=== PATIENT | female | born 1955 | race Caucasian/White ===

== ENCOUNTER 2018-09-05 23:49 | Inpatient (IN) | payer BC ==
[~2018-09-05] VITALS: Ht 172.7 cm; Wt 73.6 kg
[~2018-09-05 23:49] MED LIST: AZIT250T12 PO; PRD20T PO
[2018-09-05] MEDS ORDERED: methylPREDNISolone 125 MG (Solu-MEDROL) VIAL IV STA (23:56)
[2018-09-06] VITALS (19 sets, daily range): BP systolic 100–128; BP diastolic 51–93
[2018-09-06] MEDS ORDERED: DEXAMETHASONE 4 MG/ML SDV (DECADRON) IH ONE
[2018-09-06 00:53] LABS: BASOPHILS % (AUTO) 0 % (0-10); EOSINOPHILS # (AUTO) 0.1 10^3/uL (0.0-0.3); EOSINOPHILS % (AUTO) 2 % (0-10); HEMATOCRIT 48 % (35-52); HEMOGLOBIN 15.8 G/DL (11.5-16.0); LYMPHOCYTES % (AUTO) 15 % (12-44); MEAN CORPUSCULAR HEMOGLOBIN 30 PG (25-34); MEAN CORPUSCULAR HGB CONC 33 G/DL (32-36); MEAN CORPUSCULAR VOLUME 92 FL (80-99); MEAN PLATELET VOLUME 11.5 FL (7.4-10.4); MONOCYTES # (AUTO) 0.6 X 10^3 (0.0-1.0); MONOCYTES % (AUTO) 8 % (0-12); NEUTROPHILS % (AUTO) 75 % (42-75); PLATELET COUNT 100 10^3/uL (130-400); RED BLOOD COUNT 5.28 10^6/uL (4.35-5.85); RED CELL DISTRIBUTION WIDTH 12.8 % (10.0-14.5); WHITE BLOOD COUNT 6.7 10^3/uL (4.3-11.0)
[2018-09-06] MEDS ORDERED: RT-ALBUTEROL/IPRATROPIUM 3 ML (DUONEB) VIAL INH ONE ×2 (01:00)
[2018-09-06] MEDS ORDERED: RT-ALBUTEROL SULF 2.5 MG/3 ML PRE-MIX VIAL ONE (01:03)
[2018-09-06] MEDS ORDERED: RT-IPRATROPIUM (ATROVENT) 0.5MG/2.5ML AMP IH ONE ×2 (01:03→01:30)
[2018-09-06 01:12] LABS: PROTHROMBIN TIME PATIENT 13.3 SEC (12.2-14.7)
[2018-09-06] MEDS ORDERED: ONDANSETRON 4 MG/2 ML (SDV) Z0FRAN IVP ONE (01:15)
[2018-09-06 01:18] LABS: ALANINE AMINOTRANSFERASE 31 U/L (0-55); ALKALINE PHOSPHATASE 42 U/L (40-136); BILIRUBIN,TOTAL 0.5 MG/DL (0.1-1.0); BUN/CREATININE RATIO 10; CARBON DIOXIDE 26 MMOL/L (21-32); CHLORIDE 104 MMOL/L (98-107); CREATINE KINASE 44 U/L (29-168); CREATININE SERUM 0.82 MG/DL (0.60-1.30); GFR ESTIMATED > 60; GLUCOSE 93 MG/DL (70-105); MAGNESIUM 2.7 MG/DL (1.8-2.4); POTASSIUM 4.9 MMOL/L (3.6-5.0); SODIUM 140 MMOL/L (135-145); TOTAL PROTEIN 7.5 GM/DL (6.4-8.2)
[2018-09-06 01:24] LABS: CREATINE KINASE MB 1.7 NG/ML (<6.6)
[2018-09-06] MEDS ORDERED: RT-ALBUTEROL SULF 2.5 MG/3 ML PRE-MIX VIAL INH SCH ×2 (01:30)
[2018-09-06] MEDS ORDERED: cefTRIAXone FOR IV USE 1,000 MG in NS (IVPB) 50 ML IV ONE (01:45)
--- NOTE | 2018-09-06 01:45 | ED Respiratory ---
General Chief Complaint: Respiratory Problems Stated Complaint: SOB,DIARRHEA Nursing Triage Note: Pt arrived via ambulance for SOB and COPD. Pt has inhaler but will not use it properly. Onset was yesterday afternooon along with chills, fever and diarrhea. Allergies and Home Medications Allergies Coded Allergies: No Allergy Information Available (Unverified , 04/05/14) Home Medications Azithromycin 250 Mg Tablet, 250 MG PO UD TAKE 2 TABLETS ON DAY ONE THEN TAKE 1 TABLET DAILY FOR FOUR MORE DAYS Prescribed by: ELGIN NIELESN on 09/04/15 1509 Prednisone 20 Mg Tab, 40 MG PO DAILY Prescribed by: ELGIN NIELSEN on 09/04/15 1509 Past Ssprmuf-Jjdtmm-Dwbmcs Hx Patient Social History Recent Foreign Travel: No Contact w/Someone Who Travel: No Recent Infectious Disease Expo: No Seasonal Allergies Seasonal Allergies: No Past Medical History Appendectomy, Gallbladder, Hysterectomy, Lumpectomy, Orthopedic, Tubal Ligation Chronic Bronchitis High Cholesterol, Hypertension Liver Disease/Jaundice Family Medical History No Pertinent Family Hx Physical Exam Vital Signs - First Documented 09/05/18 09/06/18 23:50 00:42 Temp 99.5 Pulse 74 Resp 36 B/P (MAP) 140/78 (98) Pulse Ox 97 O2 Delivery Nasal Cannula O2 Flow Rate 5.00 Capillary Refill : Less Than 3 Seconds Height: 5'7.00" Weight: 154lbs. oz. 69.364967yi; 18.09 BMI Method:Stated Focused Exam Lactate Level 09/06/18 00:40: Lactic Acid Level 0.65 Lactic Acid Level Laboratory Tests Test 09/06/18 00:40 Lactic Acid Level 0.65 MMOL/L (0.50-2.00) Progress/Results/Core Measures Suspected Sepsis Recent Fever Within 48 Hours: Yes Infection Criteria Present: Suspected New Infection New/Unexplained Altered Menta: No Sepsis Screen: Possible Sepsis Risk SIRS Temperature:99.5 Pulse: 74 Respiratory Rate: 36 Laboratory Tests 09/06/18 00:40: White Blood Count 6.7 Blood Pressure 140 /78 Mean: 98 09/06/18 00:40: Lactic Acid Level 0.65 Laboratory Tests 09/06/18 00:40: Creatinine 0.82, INR Comment 1.0, Platelet Count 100L, Total Bilirubin 0.5 Results/Orders Lab Results Laboratory Tests Test 09/06/18 00:40 Range/Units White Blood Count 6.7 4.3-11.0 10^3/uL Red Blood Count 5.28 4.35-5.85 10^6/uL Hemoglobin 15.8 11.5-16.0 G/DL Hematocrit 48 35-52 % Mean Corpuscular Volume 92 80-99 FL Mean Corpuscular Hemoglobin 30 25-34 PG Mean Corpuscular Hemoglobin Concent 33 32-36 G/DL Red Cell Distribution Width 12.8 10.0-14.5 % Platelet Count 100 L 130-400 10^3/uL Mean Platelet Volume 11.5 H 7.4-10.4 FL Neutrophils (%) (Auto) 75 42-75 % Lymphocytes (%) (Auto) 15 12-44 % Monocytes (%) (Auto) 8 0-12 % Eosinophils (%) (Auto) 2 0-10 % Basophils (%) (Auto) 0 0-10 % Neutrophils # (Auto) 5.0 1.8-7.8 X 10^3 Lymphocytes # (Auto) 1.0 1.0-4.0 X 10^3 Monocytes # (Auto) 0.6 0.0-1.0 X 10^3 Eosinophils # (Auto) 0.1 0.0-0.3 10^3/uL Basophils # (Auto) 0.0 0.0-0.1 10^3/uL Prothrombin Time 13.3 12.2-14.7 SEC INR Comment 1.0 0.8-1.4 Activated Partial Thromboplast Time 35 24-35 SEC Sodium Level 140 135-145 MMOL/L Potassium Level 4.9 3.6-5.0 MMOL/L Chloride Level 104 98-107 MMOL/L Carbon Dioxide Level 26 21-32 MMOL/L Anion Gap 10 5-14 MMOL/L Blood Urea Nitrogen 8 7-18 MG/DL Creatinine 0.82 0.60-1.30 MG/DL Estimat Glomerular Filtration Rate > 60 BUN/Creatinine Ratio 10 Glucose Level 93 70-105 MG/DL Lactic Acid Level 0.65 0.50-2.00 MMOL/L Calcium Level 9.0 8.5-10.1 MG/DL Corrected Calcium 9.0 8.5-10.1 MG/DL Magnesium Level 2.7 H 1.8-2.4 MG/DL Total Bilirubin 0.5 0.1-1.0 MG/DL Aspartate Amino Transf (AST/SGOT) 31 5-34 U/L Alanine Aminotransferase (ALT/SGPT) 31 0-55 U/L Alkaline Phosphatase 42 40-136 U/L Total Creatine Kinase 44 29-168 U/L Creatine Kinase MB 1.7 <6.6 NG/ML Troponin I < 0.30 <0.30 NG/ML B-Type Natriuretic Peptide 36.4 <100.0 PG/ML Total Protein 7.5 6.4-8.2 GM/DL Albumin 4.0 3.2-4.5 GM/DL Micro Results Microbiology 09/06/18 Influenza Types A,B Antigen (ROYAL) - Final, Complete My Orders Orders - CA OSMAN DO BNP (09/05/18 23:56) Cbc With Automated Diff (09/05/18 23:56) Comprehensive Metabolic Panel (09/05/18 23:56) Creatine Kinase (09/05/18 23:56) Creatine Kinase Mb (09/05/18 23:56) Lactic Acid Analyzer (09/05/18 23:56) Magnesium (09/05/18 23:56) Protime With Inr (09/05/18 23:56) Partial Thromboplastin Time (09/05/18 23:56) Troponin I (09/05/18 23:56) Blood Culture (09/05/18 23:56) Influenza A And B Antigens (09/05/18 23:56) Sputum Culture (09/05/18 23:56) Albuterol/Ipra Inhalation Soln (Duoneb I (09/06/18 00:00) Dexamethasone Injection (Decadron Inject (09/06/18 00:00) Rt Request For Service (09/05/18 23:56) Ekg Tracing (09/05/18 23:56) O2 (09/05/18 23:56) Monitor-Rhythm Ecg Trace Only (09/05/18 23:56) Methylprednisolone Sod Succ (Solu-Medrol (09/05/18 23:56) Svn Small Volume Nebulizer (09/05/18 23:56) Chest 1 View, Ap/Pa Only (09/06/18 00:01) Ekg Tracing (09/06/18 00:38) Albuterol/Ipra Inhalation Soln (Duoneb I (09/06/18 01:00) Svn Small Volume Nebulizer (09/06/18 00:54) Ipratropium 0.02% Neb Solution (Atrovent (09/06/18 01:03) Albuterol Pre-Mix Nebs (Rt) (Proventil (09/06/18 01:03) Ondansetron Injection (Zofran Injectio (09/06/18 01:15) Albuterol Pre-Mix Nebs (Rt) (Proventil (09/06/18 01:30) Ipratropium 0.02% Neb Solution (Atrovent (09/06/18 01:30) Albuterol Pre-Mix Nebs (Rt) (Proventil (09/06/18 01:30) Ceftriaxone For Iv Use (Rocephin For I (09/06/18 01:45) Medications Given in ED Current Medications Medications Dose Ordered Sig/Jean Route Start Time Stop Time Status Last Admin Dose Admin Albuterol/ Ipratropium 3 ml ONCE ONCE INH 09/06/18 00:00 09/06/18 00:01 DC 09/06/18 00:42 3 ML Albuterol/ Ipratropium 3 ml ONCE ONCE INH 09/06/18 01:00 09/06/18 01:01 DC 09/06/18 00:59 3 ML Dexamethasone Sodium Phosphate 20 mg ONCE ONCE IH 09/06/18 00:00 09/06/18 00:01 DC 09/06/18 00:42 20 MG Ondansetron HCl 8 mg ONCE ONCE IVP 09/06/18 01:15 09/06/18 01:16 DC 09/06/18 01:12 8 MG Vital Signs/I&O 09/05/18 09/06/18 09/06/18 09/06/18 23:50 00:42 00:59 01:14 Temp 99.5 Pulse 74 Resp 36 B/P (MAP) 140/78 (98) Pulse Ox 97 100 100 97 O2 Delivery Nasal Cannula Nasal Cannula Nasal Cannula Nasal Cannula O2 Flow Rate 5.00 3.00 5.00 Capillary Refill : Less Than 3 Seconds Blood Pressure Mean: 98 Progress Note : Progress Note PT STILL WITH RESIDUAL RALES/RHONCHI/WHEEZING, BUT PT REFUSES TO COMPLETE 3RD NEB TREATMENT O2 SATS REMAIN 100% ON O2 AT 2L/NC NO DETERIORATION IN PT'S CONDITION DURING ER STAY Diagnostic Imaging Comments CXR--BIBASILAR ATELECTASIS ?--PENDING RADIOLOGIST REVIEW Departure Impression Primary Impression: Acute bronchitis Additional Impression: COPD exacerbation Disposition: 01 HOME, SELF-CARE Condition: Stable Departure-Patient Inst. Referrals: RAMYA MCKEON MD Patient Instructions: Acute Bronchitis, Adult (DC), COPD Including Emphysema ( DC) Add. Discharge Instructions: LOTS OF CLEAR LIQUIDS TYLENOL AND MOTRIN NEEDED FOR PAIN OR FEVER CONTINUE YOUR REGULAR MEDICATIONS PRESCRIBED USE YOUR INHALERS EXACTLY PRESCRIBED FOLLOW UP WITH YOUR DR ON TUESDAY FOR FURTHER All discharge instructions reviewed with patient and/or family. Voiced understanding. Scripts Azithromycin (Zithromax) 500 Mg Tablet 500 MG PO DAILY, #5 TAB FOR INFECTION Prov: CA OSMAN DO 09/06/18 Cefdinir (Cefdinir) 300 Mg Capsule 300 MG PO BID for FOR INFECTION, #20 CAP Prov: CA OSMAN DO 09/06/18 Benzonatate (TESSALON PERLES) 100 Mg Capsule 1-2 TAB PO TID for Cough, #30 CAP Prov: CA OSMAN DO 09/06/18 Methylprednisolone (Medrol) 4 Mg Tab.ds.pk 4 MG PO UD, #1 PKG Prov: CA OSMAN DO 09/06/18 Albuterol Sulfate (PROAIR HFA) 1 Puff Puff 2 PUFF IH Q4H for BREATHING, #1 GM Prov: CA OSMAN DO 09/06/18 CA OSMAN DO Sep 06, 2018 01:45
[2018-09-06] MEDS ORDERED: CEFD300C3 PO ×2 (01:53→02:08)
[2018-09-06] MEDS ORDERED: RT-ALBUINH IH ×2 (01:53→02:08)
[2018-09-06] MEDS ORDERED: BENZ100C18 PO ×2 (01:53→02:08)
[2018-09-06] MEDS ORDERED: METH4TAB PO ×2 (01:53→02:08)
[2018-09-06] MEDS ORDERED: AZIT500T PO ×2 (01:53→02:08)
[2018-09-06] MEDS ORDERED: RX-ALBUTEROL INHALER (PROAIR) 8 GM IH STA (01:55)
[2018-09-06] MEDS ORDERED: AZITHROMYCIN 250 MG TAB (ZITHROMAX) PO ONE (02:00)
--- NOTE | 2018-09-06 02:10 | NUR ---
Pt was turned to room air and oxygen saturation was at 96%. Pt walked down to bathroom and when she got back to room, patient's oxygen saturation was 82% on room air. Nasal canula was applied at 3 Liters and oxygen saturation was 88-89%. Increased to 4 liters and oxygen saturation was 92-96%.
[2018-09-06] MEDS ORDERED: RT-ALBUTEROL/IPRATROPIUM 3 ML (DUONEB) VIAL INH PRN (04:45)
[2018-09-06] MEDS ORDERED: AZITHROMYCIN 500 MG/NS 250 ML IVPB IV ONE ×2 (04:45)
[2018-09-06] MEDS ORDERED: methylPREDNISolone 125 MG (Solu-MEDROL) VIAL IV SCH (06:00)
[2018-09-06] MEDS: RT-ALBUTEROL/IPRATROPIUM 3 ML (DUONEB) VIAL INH SCH ×5 (06:35→23:52)
--- NOTE | 2018-09-06 07:56 | Diagnostic Imaging Report ---
INDICATION: Shortness of air, cough and congestion. TECHNIQUE: Single view chest 12:11 a.m. CORRELATION STUDY: 09/04/2015. FINDINGS: The heart size, mediastinal configuration and pulmonary vascularity are within normal limits. The lungs are clear with no consolidating infiltrate. There is no significant effusion or pneumothorax. Some increased density over the lung bases likely soft tissue attenuation. IMPRESSION: 1. No radiographic findings to suggest acute abnormality of the chest. Dictated by: Dictated on workstation # [id number]
[2018-09-06] MEDS ORDERED: RT-ADVAIR HFA 115/21 MCG PER PUFF IH SCH (08:00)
[2018-09-06] MEDS ORDERED: BUDE10.2 INH (09:25)
[2018-09-06] MEDS ORDERED: ALPR0.5T7 PO (09:25)
[2018-09-06] MEDS ORDERED: PROP40TA5 PO (09:25)
[2018-09-06] MEDS ORDERED: ESTR2TAB PO (09:25)
[2018-09-06] MEDS ORDERED: CHOL10003 PO (09:25)
[2018-09-06] MEDS ORDERED: OXYC-529 PO (09:25)
[2018-09-06] MEDS ORDERED: LISI-552 PO (09:25)
--- NOTE | 2018-09-06 09:27 | NUR ---
SPOKE WITH THE PATIENT ABOUT HER MEDICATIONS. WE WENT OVER THE EXT MED HX AND SHE VERIFIED HOW SHE TAKES THEM. SHE ALSO TAKES VITAMIN D OTC DAILY. SHE WAS PRESCRIBED 5 PRESCRIPTIONS IN ED PRIOR TO THEM DECIDING TO ADMIT HER. I HAVE REMOVED THEM FROM THE MED REC AT THIS TIME SINCE SHE WAS ADMITTED AND HAS NOT PICKED THEM UP OR STARTED THEM.
--- NOTE | 2018-09-06 10:27 | History & Physical-Hospitalist ---
History of Present Illness HPI/Chief Complaint CC: Dyspnea with hypoxia HPI: This is a 62-year-old white female clinic patient of Dr. Taylor with a history of chronic pain with narcotic dependence and anxiety with early COPD who presented to the ER with shortness of breath and wheezing found to have significant hypoxia of 80 percent requiring IV steroids nebulizer treatments and oxygen supplementation. She reports that she felt badly for the past 2 days and has not required home oxygen in the past. She does not have a history of pulmonary function testing. She does appear to be a good candidate for pulmonary rehabilitation since she hasn't smoked for 3 years but apparently she vapes. Overall patient has stabilized during the hospital course with transfer to fourth floor. Source: patient, RN/MD Exam Limitations: no limitations Date Seen 09/06/18 Time Seen by a Provider: 09:30 Attending Physician Radha Taylor Floyd R MD Referring Physician Date of Admission Sep 06, 2018 at 02:48 Home Medications & Allergies Home Medications Reviewed patient Home Medication Reconciliation performed by pharmacy medication reconciliations equine pharmacology technician and/or nursing. Patients Allergies have been reviewed. Allergies Allergies Coded Allergies No Allergy Information Available (Unverified04/05/14) Past Hbuhuho-Jtbpkw-Sbinow Hx Past Med/Social Hx: Reviewed Nursing Past Med/Soc Hx, Reviewed and Corrections made Patient Social History Marrital Status: single Employed/Student: employed (Caregiver) Alcohol Use: Denies Use Recreational Drug Use: No Smoking Status: Former Smoker Former Smoker, Quit: Aug 07, 2018 Type Used: Cigarettes Physical Abuse Screen: No Sexual Abuse: No Recent Foreign Travel: No Contact w/other who traveled: No Recent Hopitalizations: No Recent Infectious Disease Expo: No Immunizations Up To Date Date of Influenza Vaccine: Jul 07, 2018 Seasonal Allergies Seasonal Allergies: No Past Medical History Surgeries: Appendectomy, Gallbladder, Hysterectomy, Lumpectomy, Orthopedic, Tubal Ligation Respiratory: COPD Currently Using CPAP: No Currently Using BIPAP: No Cardiac: High Cholesterol, Hypertension : No Gastrointestinal: Liver Disease/Jaundice Musculoskeletal: Arthritis Cancer: Breast Cancer: Tumor on breast - has been removed Psychosocial: Anxiety History of Blood Disorders: No Adverse Reaction to Blood [place]: No Family History Completed stroke 19 FATHER, Onset:60 years & older FH: lung cancer 19 MOTHER, Onset:60 years & older FH: rheumatoid arthritis G8 SISTER, Onset:25s - 30 Myocardial infarction G8 BROTHER, Onset:50's - 60 Sjogren's disease G8 SISTER, Onset:30's - 40 No Pertinent Family Hx Review of Systems Constitutional: see HPI, weakness EENTM: no symptoms reported Respiratory: cough, dyspnea on exertion, short of breath, wheezing Cardiovascular: no symptoms reported Gastrointestinal: no symptoms reported Genitourinary: no symptoms reported Musculoskeletal: no symptoms reported Skin: no symptoms reported Psychiatric/Neurological: No Symptoms Reported All Other Systems Reviewed Negative Unless Noted: Yes Physical Exam Physical Exam Vital Signs Vital Signs - First Documented 09/05/18 09/06/18 09/06/18 23:50 00:42 04:24 Temp 99.5 Pulse 74 Resp 36 B/P (MAP) 140/78 (98) Pulse Ox 97 O2 Delivery Nasal Cannula O2 Flow Rate 5.00 FiO2 36 Capillary Refill : Less Than 3 Seconds Height, Weight, BMI Height: 5'8.00" Weight: 156lbs. 6.0oz. 70.680088uh; 23.3 BMI Method:Stated General Appearance: No Apparent Distress, WD/WN Eyes: Bilateral Eye Normal Inspection, Bilateral Eye PERRL HEENT: PERRL/EOMI, Normal ENT Inspection, Pharynx Normal Neck: Full Range of Motion, Normal Inspection, Non Tender, Supple, Carotid Bruit Respiratory: Chest Non Tender, No Accessory Muscle Use, No Respiratory Distress , Crackles, Decreased Breath Sounds, Wheezing Cardiovascular: Regular Rate, Rhythm, No Edema, No Gallop, No JVD, No Murmur, Normal Peripheral Pulses Gastrointestinal: Normal Bowel Sounds, No Organomegaly, No Pulsatile Mass, Non Tender, Soft Back: Normal Inspection, No CVA Tenderness, No Vertebral Tenderness Extremity: Normal Capillary Refill, Normal Inspection, Normal Range of Motion, Non Tender, No Calf Tenderness, No Pedal Edema Neurologic/Psychiatric: Alert, Oriented x3, No Motor/Sensory Deficits, Normal Mood/Affect Skin: Normal Color, Warm/Dry Lymphatic: No Adenopathy Results Results/Procedures Labs Laboratory Tests 09/06/18 00:40 Patient resulted labs reviewed. Assessment/Plan Admission Diagnosis Assessment: New onset exacerbation of COPD Former smoker quit 3 years ago Bacterial bronchitis placed on empiric antibiotics Chronic pain Anxiety Plan: IV steroids Nebulizer treatments Home O2 evaluation Ambulate Transfer to fourth floor Home meds Admission Status: Inpatient Order (span 2 midnights) Reason for Inpatient Admission: Exacerbation of COPD in need of IV steroids nebulizers and oxygen Diagnosis/Problems Diagnosis/Problems (1) COPD exacerbation Status: Acute (2) Acute bronchitis Status: Acute Qualifiers: Bronchitis organism: unspecified organism Qualified Codes: J20.9 - Acute bronchitis, unspecified (3) Hypoxia Status: Acute (4) Chronic pain Status: Chronic Qualifiers: Chronic pain type: chronic pain syndrome Qualified Codes: G89.4 - Chronic pain syndrome (5) Anxiety Status: Chronic (6) Thrombocytopenia Status: Acute Clinical Quality Measures DVT/VTE Risk/Contraindication: Risk Factor Score Per Nursin RFS Level Per Nursing on Admit: 4+=Very High RADHA TAYLOR DO Sep 06, 2018 10:27
[2018-09-06] MEDS: PROPRANOLOL 20 MG (INDERAL) TABLET PO SCH ×2 (11:11→20:31)
[2018-09-06] MEDS: methylPREDNISolone 40 MG/ML (Solu-MEDROL) VIAL IV SCH ×3 (12:56→23:38)
[2018-09-06] MEDS: ALPRAZolam 0.5 MG (XANAX) TAB PO SCH ×2 (13:58→19:49)
--- NOTE | 2018-09-06 14:45 | NUR ---
Patient transferred to 421 per accompanied by ICU staff. Patient and family notified and understand transfer. Personal belongings with patient. Report given to THIS RN FROM [employer].
[2018-09-06] MEDS: cefTRIAXone 1 GM/NS 50 ML IVPB IV SCH ×2 (20:31)
[2018-09-06] MEDS: RT-ADVAIR HFA 115/21 MCG PER PUFF IH SCH (23:31)
[2018-09-07] VITALS (16 sets, daily range): BP systolic 100–155; BP diastolic 51–91
[2018-09-07] MEDS: RT-ALBUTEROL/IPRATROPIUM 3 ML (DUONEB) VIAL INH SCH ×6 (02:48→22:04)
[2018-09-07 04:36] LABS: BASOPHILS % (AUTO) 0 % (0-10); EOSINOPHILS % (AUTO) 0 % (0-10); HEMATOCRIT 45 % (35-52); HEMOGLOBIN 14.9 G/DL (11.5-16.0); LYMPHOCYTES # (AUTO) 0.7 X 10^3 (1.0-4.0); LYMPHOCYTES % (AUTO) 4 % (12-44); MEAN CORPUSCULAR HEMOGLOBIN 30 PG (25-34); MEAN CORPUSCULAR HGB CONC 33 G/DL (32-36); MEAN CORPUSCULAR VOLUME 90 FL (80-99); MEAN PLATELET VOLUME 11.5 FL (7.4-10.4); MONOCYTES # (AUTO) 0.3 X 10^3 (0.0-1.0); MONOCYTES % (AUTO) 2 % (0-12); NEUTROPHILS # (AUTO) 17.6 X 10^3 (1.8-7.8); NEUTROPHILS % (AUTO) 95 % (42-75); PLATELET COUNT 119 10^3/uL (130-400); RED BLOOD COUNT 4.98 10^6/uL (4.35-5.85); RED CELL DISTRIBUTION WIDTH 12.8 % (10.0-14.5); WHITE BLOOD COUNT 18.6 10^3/uL (4.3-11.0)
[2018-09-07 05:03] LABS: BUN/CREATININE RATIO 14; CALCIUM 9.3 MG/DL (8.5-10.1); CARBON DIOXIDE 23 MMOL/L (21-32); CHLORIDE 103 MMOL/L (98-107); CREATININE SERUM 0.79 MG/DL (0.60-1.30); GFR ESTIMATED > 60; GLUCOSE 129 MG/DL (70-105); POTASSIUM 4.4 MMOL/L (3.6-5.0); SODIUM 136 MMOL/L (135-145)
[2018-09-07 05:05] LABS: BAND NEUTROPHILS 9 %; BASOPHILS % (MANUAL) 0 %; EOSINOPHILS % (MANUAL) 0 %; LYMPHOCYTES % (MANUAL) 4 %; MONOCYTES % (MANUAL) 0 %; NEUTROPHILS % (MANUAL) 87 %
[2018-09-07 05:06] LABS: RBC MORPH NORMAL
[2018-09-07] MEDS: methylPREDNISolone 40 MG/ML (Solu-MEDROL) VIAL IV SCH ×3 (06:10→17:07)
[2018-09-07] MEDS: ALPRAZolam 0.5 MG (XANAX) TAB PO SCH ×3 (06:11→22:07)
[2018-09-07] MEDS: VITAMIN D3 1,000 UNITS (CHOLECALCIFEROL) TABLET PO SCH (06:11)
[2018-09-07] MEDS: RT-ADVAIR HFA 115/21 MCG PER PUFF IH SCH ×2 (07:34→19:10)
--- NOTE | 2018-09-07 08:12 | NUR ---
HOME OXYGEN STUDY PT WALKED FROM BED TO BATHROOM ON 5 LPM AND SPO2 DECREASED TO 84%, TOOK SEVERAL MINUTES FOR SPO2 TO INCREASED TO 92% ONCE PT RETURNED TO BED. PT NEEDS OXYGEN AT 5 LPM AT ALL TIMES CURRENTLY
[2018-09-07] MEDS: PROPRANOLOL 20 MG (INDERAL) TABLET PO SCH ×2 (08:34→20:26)
[2018-09-07] MEDS: AZITHROMYCIN 250 MG TAB (ZITHROMAX) PO SCH (08:34)
[2018-09-07] MEDS: ESTRADIOL 1 MG TAB (ESTRACE) PO SCH (08:34)
[2018-09-07] MEDS: lisINopril 20 MG (PRINIVIL) TABLET PO SCH (08:34)
--- NOTE | 2018-09-07 09:01 | Progress Note-Hospitalist ---
Subjective HPI/CC On Admission Date Seen by Provider: Sep 07, 2018 Time Seen by Provider: 09:00 CC: Dyspnea with hypoxia HPI: This is a 62-year-old white female clinic patient of Dr. Taylor with a history of chronic pain with narcotic dependence and anxiety with early COPD who presented to the ER with shortness of breath and wheezing found to have significant hypoxia of 80 percent requiring IV steroids nebulizer treatments and oxygen supplementation. She reports that she felt badly for the past 2 days and has not required home oxygen in the past. She does not have a history of pulmonary function testing. She does appear to be a good candidate for pulmonary rehabilitation since she hasn't smoked for 3 years but apparently she vapes. Overall patient has stabilized during the hospital course with transfer to fourth floor. Subjective/Events-last exam Patient is worse Worsening wheezing that she blames on no nebulizer treatments given last night ABG checked and noted hypoxia and mild hypercapnia Dr. Waterman consultation ordered CT chest ordered to rule out PE Lovenox now given with SCDs that of been in place since admission Overall worsened status will require higher level fifth for ICU admission Review of Systems Pulmonary: Dyspnea, Cough Focused Exam Lactate Level 09/06/18 00:40: Lactic Acid Level 0.65 Objective Exam Vital Signs Vital Signs Date Time Temp Pulse Resp B/P (MAP) Pulse Ox O2 Delivery O2 Flow Rate FiO2 09/07/18 10:07 93 Nasal Cannula 5.00 09/07/18 08:00 98.5 77 18 145/65 (91) 09/06/18 04:24 36 Capillary Refill : Less Than 3 Seconds General Appearance: WD/WN, Chronically ill, Moderate Distress, Thin Respiratory: Accessory Muscle Use, Crackles, Rales, Respiratory Distress, Wheezing Cardiovascular: Regular Rate, Rhythm, No Edema, No Gallop, No JVD, No Murmur, Normal Peripheral Pulses Neurologic/Psychiatric: Alert, Oriented x3, No Motor/Sensory Deficits, Normal Mood/Affect Results/Procedures Lab Laboratory Tests 09/07/18 04:25 Patient resulted labs reviewed. Assessment/Plan Assessment and Plan Assess & Plan/Chief Complaint Assessment: New onset exacerbation of COPD with new worsening with hypoxia and hypercapnia on ABG requiring transfer to ICU and Dr. Waterman pulmonology consultation along with CT angiogram to rule out pulmonary embolism Former smoker quit 3 years ago Bacterial bronchitis placed on empiric antibiotics Chronic pain Anxiety Plan: Transfer to ICU Oxygen May need BiPAP IV steroids Monitor labs CT angiogram Lovenox SCDs Monitor closely Diagnosis/Problems Diagnosis/Problems (1) Respiratory insufficiency Status: Acute (2) COPD exacerbation Status: Acute (3) Acute bronchitis Status: Acute Qualifiers: Bronchitis organism: unspecified organism Qualified Codes: J20.9 - Acute bronchitis, unspecified (4) Hypoxia Status: Acute (5) Chronic pain Status: Chronic Qualifiers: Chronic pain type: chronic pain syndrome Qualified Codes: G89.4 - Chronic pain syndrome (6) Anxiety Status: Chronic (7) Thrombocytopenia Status: Acute Clinical Quality Measures DVT/VTE Risk/Contraindication: Risk Factor Score Per Nursin RFS Level Per Nursing on Admit: 4+=Very High OSEML PATHAK DO Sep 07, 2018 09:01
--- NOTE | 2018-09-07 09:53 | Pulmonary Consultation ---
History of Present Illness History of Present Illness Date of Consultation 09/07/18 09:48 Date of Admission Allergies and Home Medications Allergies Coded Allergies: No Allergy Information Available (Unverified , 04/05/14) Home Medications Alprazolam 0.5 Mg Tablet, 0.5 MG PO TID, (Reported) Budesonide/Formoterol Fumarate 10.2 Gm Hfa.aer.ad, 2 PUFF INH BID, (Reported) Cholecalciferol (Vitamin D3) 1,000 Unit Tablet, 1,000 UNIT PO DAILY, (Reported) Estradiol 2 Mg Tablet, 2 MG PO DAILY, (Reported) Lisinopril 20 Mg Tablet, 20 MG PO DAILY, (Reported) Oxycodone HCl 5 Mg Tablet, 5 MG PO BID, (Reported) Propranolol HCl 40 Mg Tablet, 40 MG PO BID, (Reported) Past Yzsmljg-Pltgwp-Gihlcl Hx Past Med/Social Hx: Reviewed Nursing Past Med/Soc Hx, Reviewed and Corrections made Patient Social History Alcohol Use: Denies Use Recreational Drug Use: No Smoking Status: Former Smoker Type Used: Cigarettes Former Smoker, Quit: Aug 07, 2018 Recent Foreign Travel: No Contact w/Someone Who Travel: No Recent Infectious Disease Expo: No Recent Hopitalizations: No Physical Abuse: No Sexual Abuse: No Mistreated: No Fear: No Immunizations Up To Date Date of Influenza Vaccine: Jul 07, 2018 Seasonal Allergies Seasonal Allergies: No Past Medical History Surgeries: Yes Appendectomy, Gallbladder, Hysterectomy, Lumpectomy, Orthopedic, Tubal Ligation Respiratory: Yes Chronic Bronchitis, COPD Currently Using CPAP: No Currently Using BIPAP: No Cardiac: Yes High Cholesterol, Hypertension Neurological: No : No Genitourinary: No Gastrointestinal: Yes (HEP C - 2006) Liver Disease/Jaundice Musculoskeletal: No Arthritis Endocrine: No HEENT: No Cancer: No Breast Tumor on breast - has been removed Psychosocial: No Anxiety Integumentary: No Blood Disorders: No Adverse Reaction/Blood Tranf: No Family Medical History Completed stroke 19 FATHER, Onset:60 years & older FH: lung cancer 19 MOTHER, Onset:60 years & older FH: rheumatoid arthritis G8 SISTER, Onset:25's - 30 Myocardial infarction G8 BROTHER, Onset:50's - 60 Sjogren's disease G8 SISTER, Onset:30's - 40 No Pertinent Family Hx Sepsis Event Evaluation Height, Weight, BMI Height: 5'8.00" Weight: 154lbs. 4.0oz. 69.826561ui; 23.3 BMI Method:Stated Exam Exam Vital Signs Date Time Temp Pulse Resp B/P (MAP) Pulse Ox O2 Delivery O2 Flow Rate FiO2 09/07/18 08:38 90 Nasal Cannula 5.00 09/07/18 08:09 92 5.00 09/07/18 08:00 98.5 77 18 145/65 (91) 92 Nasal Cannula 5.00 09/07/18 07:40 87 Nasal Cannula 5.00 09/07/18 07:34 87 Nasal Cannula 5.00 09/07/18 04:01 98.1 66 18 111/56 (74) 93 Nasal Cannula 4.00 09/07/18 02:48 93 Nasal Cannula 4.00 09/07/18 00:04 98.2 64 18 117/56 (76) 94 Nasal Cannula 4.00 09/06/18 23:31 94 Nasal Cannula 4.00 09/06/18 20:19 97.4 80 18 113/54 (73) 91 Nasal Cannula 4.00 09/06/18 20:00 91 Nasal Cannula 4.00 09/06/18 16:15 98.6 78 22 100/54 (69) 92 OxyMask 4.00 09/06/18 16:13 90 OxyMask 4.00 09/06/18 16:04 94 Nasal Cannula 3.00 09/06/18 14:45 94 Nasal Cannula 3.00 09/06/18 14:45 98.4 79 18 119/74 (89) 92 Nasal Cannula 4.00 09/06/18 14:27 92 Nasal Cannula 4.00 09/06/18 14:00 75 105/61 (76) 89 Nasal Cannula 4.00 09/06/18 13:00 69 104/56 (72) 89 Nasal Cannula 3.00 09/06/18 13:00 67 09/06/18 12:00 76 110/59 (76) 92 Nasal Cannula 3.00 09/06/18 12:00 94 Nasal Cannula 3.00 09/06/18 11:00 79 114/84 (94) 91 Nasal Cannula 3.00 09/06/18 10:26 94 Nasal Cannula 3.00 09/06/18 10:00 68 21 114/66 (82) 94 Nasal Cannula 3.00 I & O 09/07/18 07:00 Intake Total 1740 ml Output Total 300 ml Balance 1440 ml Height & Weight Height: 5'8.00" Weight: 154lbs. 4.0oz. 69.553940xw; 23.3 BMI Method:Stated General Appearance: No Apparent Distress, WD/WN HEENT: PERRL/EOMI, Normal ENT Inspection, Pharynx Normal Neck: Full Range of Motion, Normal Inspection, Non Tender, Supple, Carotid Bruit Respiratory: Chest Non Tender, No Accessory Muscle Use, No Respiratory Distress , Crackles, Decreased Breath Sounds, Wheezing Cardiovascular: Regular Rate, Rhythm, No Edema, No Gallop, No JVD, No Murmur, Normal Peripheral Pulses Capillary Refill: Less Than 3 Seconds Extremity: Normal Capillary Refill, Normal Inspection, Normal Range of Motion, Non Tender, No Calf Tenderness, No Pedal Edema Neurologic/Psychiatric: Alert, Oriented x3, No Motor/Sensory Deficits, Normal Mood/Affect Skin: Normal Color, Warm/Dry Lymphatic: No Adenopathy Results Lab Laboratory Tests 09/06/18 00:40 09/07/18 04:25 Assessment/Plan Assessment/Plan Acute on chronic respiratory failure COPDAE with hypoxia -SVNS, Steroids -Oxygen -check ABG -Check CT of chest -Change oxygen to vapotherm -Noninvasive ventilation QHS and PRN -Transfer to ICU Anxiety I discussed Dr. Taylor and she states pt has been getting worse respiratory damon. I am going to transfer pt to ICU step down for closer monitoring. KATHERYN LIRA DO Sep 07, 2018 09:53
[2018-09-07] MEDS: ENOXAPARIN 40 MG/0.4 ML (LOVENOX) SYR SC SCH (10:07)
[2018-09-07 10:12] LABS: ABG BASE EXCESS 4.6 MMOL/L (-2.5-2.5); ABG OXYGEN SATURATION 94 % (94-100); ABG PCO2 55 MMHG (35-45); ABG PH 7.35 (7.37-7.43); ABG PO2 72 MMHG (79-93); ABG TCO2 31.6 MMOL/L (21.0-31.0)
[2018-09-07 10:13] LABS: ALLENS TEST YES-POS
[2018-09-07 10:14] LABS: PATIENT TEMP 98.3
[2018-09-07] MEDS ORDERED: NS 100 ML (IVPB) BAG IV ONE (10:15)
[2018-09-07] MEDS ORDERED: RECEIVED CONTRAST (Hold Metformin) IV SCH (10:15)
[2018-09-07] MEDS ORDERED: IOHEXOL 350 MG/ML 150 ML (OMNIPAQUE 350) VIAL IV ONE (10:15)
--- NOTE | 2018-09-07 11:03 | NUR ---
CM/SS, respond to consult regarding probable home O2 at discharge. Patient remains acute at this time, anticipate home O2 at discharge. Discussed with patient and explored agencies in our service area. [facility] Following patient progress for more definitive post hospital needs. Arrange home O2 if indicated.
[2018-09-07] MEDS ORDERED: ONDANSETRON 4 MG/2 ML (SDV) Z0FRAN ONE (12:05)
--- NOTE | 2018-09-07 13:28 | NUR ---
PT TRANSFERRED FROM 4TH FLOOR TO ICU2 VIA WC W/ NURSING STAFF AND PERSONAL BELONGINGS. PT ORIENTED TO SURROUNDINGS AND ASSISTED INTO BED. PLACED PT ON MONITORS, PT CURRENTLY ON 5L O2 NC, SATS IN LOW 90'S. RT NOTIFIED OF TRANSFER AND WILL BRING VAPOTHERM. BEDSIDE REPORT RECEIVED BY HELEN ARDON.
--- NOTE | 2018-09-07 13:42 | Diagnostic Imaging Report ---
PROCEDURE: CT angiography of the chest with contrast. TECHNIQUE: Multiple contiguous axial images were obtained through the chest after uneventful bolus administration of intravenous contrast. 2D reconstructed CTA MIP acquisitions were also performed. INDICATION: Hypoxia and COPD exacerbation. No prior studies are available for comparison. Evaluation of the pulmonary arterial system is without evidence of thromboembolism. No filling defects are seen within central, lobar or segmental branches. The thoracic aorta is normal in caliber. No dissection is identified. No pericardial or pleural fluid is identified. No definite axillary, hilar or mediastinal lymphadenopathy is identified. Centrilobular emphysematous changes are identified in both lungs. Central airways are patent. No infiltrates, nodules or masses are seen. Known mass right lobe of the liver appears to be similar to prior CTs dating back to 2013. IMPRESSION: Unremarkable CT angiogram of the chest, without evidence of pulmonary emboli or aortic dissection. There are changes of COPD. Dictated by: Dictated on workstation # [id number]
--- NOTE | 2018-09-07 13:48 | NUR ---
patient transfered to icu 2, report given to Mayte ARDON, RT notified patient was in icu 2
--- NOTE | 2018-09-07 14:23 | NUR ---
CTA RESULTS GIVEN TO DR LIRA.
[2018-09-07] MEDS: cefTRIAXone 1 GM/NS 50 ML IVPB IV SCH ×2 (20:26)
[2018-09-07] MEDS ORDERED: ACETAMINOPHEN 500 MG TAB (TYLENOL) PO PRN (20:30)
[2018-09-07] MEDS ORDERED: diphenhydrAMINE 25 MG TAB (BENADRYL) PO PRN (20:30)
[2018-09-07] MEDS ORDERED: CALCIUM CARBONATE 500 MG (TUMS) TAB.CHEW PO PRN (20:30)
[2018-09-08] VITALS (13 sets, daily range): BP systolic 90–166; BP diastolic 51–99
[2018-09-08] MEDS: methylPREDNISolone 40 MG/ML (Solu-MEDROL) VIAL IV SCH ×4 (00:20→17:30)
[2018-09-08] MEDS: RT-ALBUTEROL/IPRATROPIUM 3 ML (DUONEB) VIAL INH SCH ×6 (02:30→22:00)
[2018-09-08 03:55] LABS: BASOPHILS % (AUTO) 0 % (0-10); EOSINOPHILS % (AUTO) 0 % (0-10); HEMATOCRIT 46 % (35-52); LYMPHOCYTES # (AUTO) 0.6 X 10^3 (1.0-4.0); LYMPHOCYTES % (AUTO) 3 % (12-44); MEAN CORPUSCULAR HEMOGLOBIN 30 PG (25-34); MEAN CORPUSCULAR HGB CONC 32 G/DL (32-36); MEAN CORPUSCULAR VOLUME 92 FL (80-99); MEAN PLATELET VOLUME 12.1 FL (7.4-10.4); MONOCYTES # (AUTO) 0.5 X 10^3 (0.0-1.0); MONOCYTES % (AUTO) 3 % (0-12); NEUTROPHILS # (AUTO) 17.5 X 10^3 (1.8-7.8); NEUTROPHILS % (AUTO) 94 % (42-75); PLATELET COUNT 94 10^3/uL (130-400); RED BLOOD COUNT 5.02 10^6/uL (4.35-5.85); RED CELL DISTRIBUTION WIDTH 12.9 % (10.0-14.5); WHITE BLOOD COUNT 18.5 10^3/uL (4.3-11.0)
[2018-09-08 04:20] LABS: BUN/CREATININE RATIO 18; CALCIUM 8.9 MG/DL (8.5-10.1); CARBON DIOXIDE 25 MMOL/L (21-32); CHLORIDE 103 MMOL/L (98-107); CREATININE SERUM 0.77 MG/DL (0.60-1.30); GFR ESTIMATED > 60; GLUCOSE 117 MG/DL (70-105); MAGNESIUM 2.3 MG/DL (1.8-2.4); PHOSPHORUS 3.8 MG/DL (2.3-4.7); POTASSIUM 4.6 MMOL/L (3.6-5.0); SODIUM 138 MMOL/L (135-145)
[2018-09-08] MEDS: ALPRAZolam 0.5 MG (XANAX) TAB PO SCH ×3 (05:58→22:39)
[2018-09-08] MEDS: VITAMIN D3 1,000 UNITS (CHOLECALCIFEROL) TABLET PO SCH (05:58)
[2018-09-08] MEDS ORDERED: KCL 20 MEQ TAB (K-DUR) PO SCH (06:00)
[2018-09-08] MEDS ORDERED: MAGNESIUM 1 GM/100 ML IVPB 100 ML IV SCH (06:00)
[2018-09-08] MEDS ORDERED: POTASSIUM CL 10MEQ/50ML IVPB 50 ML IV SCH (06:00)
--- NOTE | 2018-09-08 06:56 | Diagnostic Imaging Report ---
INDICATION: COPD exacerbation. EXAMINATION: Chest 09/08/2018. COMPARISON: 09/06/2018. FINDINGS: Lungs are stable. Heart and pulmonary vasculature are unchanged. No pneumothorax or effusions. IMPRESSION: 1. Stable chest. Dictated by: Dictated on workstation # [id number]
--- NOTE | 2018-09-08 08:03 | Pulmonary Progress Note ---
Subjective Time Seen by a Provider: 08:15 Subjective/Events-last exam PT is doing better this morning. Less SOB however still wheezy. Sepsis Event Evaluation Height, Weight, BMI Height: 5'8.00" Weight: 154lbs. 0.0oz. 69.173217re; 23.3 BMI Method:Stated Focused Exam Lactate Level 09/06/18 00:40: Lactic Acid Level 0.65 Exam Exam Vital Signs Date Time Temp Pulse Resp B/P (MAP) Pulse Ox O2 Delivery O2 Flow Rate FiO2 09/08/18 06:45 96 Vapotherm 10.00 40 09/08/18 06:00 72 32 143/71 (95) 94 Vapotherm 40.00 10.00 09/08/18 05:00 59 24 131/68 (89) 93 Vapotherm 40.00 10.00 09/08/18 04:15 97.9 70 15 131/60 (83) 95 Vapotherm 40.00 10.00 09/08/18 04:00 94 Vapotherm 10.00 09/08/18 03:00 60 22 124/64 (84) 93 Vapotherm 40.00 10.00 09/08/18 02:30 93 Vapotherm 10.00 40 09/08/18 02:00 56 26 90/53 (65) 96 Vapotherm 40.00 10.00 09/08/18 01:00 56 09/08/18 01:00 56 21 98/58 (71) 96 Vapotherm 40.00 10.00 09/08/18 00:00 97.1 56 25 96/51 (66) 95 Vapotherm 40.00 10.00 09/07/18 23:59 94 Vapotherm 10.00 09/07/18 23:00 58 24 100/54 (69) 97 Vapotherm 40.00 10.00 09/07/18 22:04 97 Vapotherm 10.00 50 09/07/18 22:04 57 24 97 Vapotherm 40.00 10.00 09/07/18 22:00 69 26 134/76 (95) 97 Vapotherm 50.00 10.00 09/07/18 21:00 58 24 122/60 (80) 96 Vapotherm 50.00 10.00 09/07/18 20:27 76 27 155/91 (112) 90 Vapotherm 50.00 10.00 09/07/18 20:00 94 Vapotherm 10.00 50 09/07/18 20:00 94 Vapotherm 10.00 09/07/18 19:16 94 Vapotherm 10.00 50 09/07/18 19:11 94 Vapotherm 10.00 50 09/07/18 19:00 90 26 96 Vapotherm 50.00 10.00 09/07/18 19:00 90 09/07/18 18:00 84 30 108/85 (93) 92 Vapotherm 50.00 10.00 09/07/18 17:00 78 48 119/53 (75) 92 Vapotherm 50.00 10.00 09/07/18 16:18 94 Vapotherm 10.00 50 09/07/18 16:00 68 27 128/70 (89) 94 Vapotherm 50.00 10.00 09/07/18 15:44 97.8 09/07/18 15:00 62 26 101/51 (68) 94 Vapotherm 50.00 10.00 09/07/18 14:45 70 14 128/63 (84) 97 Vapotherm 50.00 10.00 09/07/18 14:39 Vapotherm 50.00 10.00 09/07/18 14:17 92 Vapotherm 5.00 50 09/07/18 14:15 71 26 124/55 (78) 92 Vapotherm 50.00 5.00 09/07/18 14:00 74 26 129/74 (92) 93 Vapotherm 50.00 5.00 09/07/18 13:44 140/74 (96) 09/07/18 13:35 74 09/07/18 13:30 98.4 77 21 94 Nasal Cannula 5.00 09/07/18 13:28 94 Nasal Cannula 5.00 09/07/18 12:00 98.5 77 20 153/70 (97) 91 Nasal Cannula 5.00 09/07/18 10:07 93 Nasal Cannula 5.00 09/07/18 08:38 90 Nasal Cannula 5.00 09/07/18 08:09 92 5.00 09/07/18 08:00 98.5 77 18 145/65 (91) 92 Nasal Cannula 5.00 I & O 09/08/18 07:00 Intake Total 1570 ml Output Total 550 ml Balance 1020 ml Height & Weight Height: 5'8.00" Weight: 154lbs. 0.0oz. 69.903710su; 23.3 BMI Method:Stated General Appearance: WD/WN, Anxious, Chronically ill, Mild Distress, Thin HEENT: PERRL/EOMI, Normal ENT Inspection, Pharynx Normal Neck: Full Range of Motion, Normal Inspection, Non Tender, Supple, Carotid Bruit Respiratory: Accessory Muscle Use, Crackles, Rales, Respiratory Distress, Wheezing Cardiovascular: Regular Rate, Rhythm, No Edema, No Gallop, No JVD, No Murmur, Normal Peripheral Pulses Capillary Refill: Less Than 3 Seconds Extremity: Normal Capillary Refill, Normal Inspection, Normal Range of Motion, Non Tender, No Calf Tenderness, No Pedal Edema Neurologic/Psychiatric: Alert, Oriented x3, No Motor/Sensory Deficits, Normal Mood/Affect Skin: Normal Color, Warm/Dry Lymphatic: No Adenopathy Results Lab Laboratory Tests 09/07/18 04:25 09/08/18 03:23 Assessment/Plan Assessment/Plan Acute on chronic respiratory failure COPDAE with hypoxia -Pt is very high risk for multiple recurrent hospitalizations secondary to chronic respiratory failure -Pt will benefit from home vent to mask. I will try to arrange for this -SVNS, Steroids -CT of chest - reviewed -Continue vapotherm -Noninvasive ventilation QHS and PRN -Transfer to ICU Severe COPDwith AE -PT will need home 02 -SVNS -Decrease solumedrol to 40 IV Q 6 Anxiety KATHERYN LIRA DO Sep 08, 2018 08:03
[2018-09-08] MEDS: PROPRANOLOL 20 MG (INDERAL) TABLET PO SCH ×2 (08:45→21:26)
[2018-09-08] MEDS: lisINopril 20 MG (PRINIVIL) TABLET PO SCH (08:45)
[2018-09-08] MEDS: AZITHROMYCIN 250 MG TAB (ZITHROMAX) PO SCH (08:45)
[2018-09-08] MEDS: ESTRADIOL 1 MG TAB (ESTRACE) PO SCH (08:45)
--- NOTE | 2018-09-08 09:30 | NUR ---
Patient transferred to room 412 from ICU. Assumed care at this time. Awake, alert, and oriented times three. On 5L High flow NC. Skin pink, warm, and dry. Heart rate regular, telemetry in place. Lungs diminished and coarse. Abdomen soft and non-tender. No edema noted. Will monitor. Call light in reach.
--- NOTE | 2018-09-08 09:44 | NUR ---
0840 REPORT GIVEN TO BRENT ARDON 0930 PATIENT TRANSFERRED TO [facility], PERSONAL BELONGINGS IN HAND
[2018-09-08] MEDS: ENOXAPARIN 40 MG/0.4 ML (LOVENOX) SYR SC SCH (10:13)
--- NOTE | 2018-09-08 10:41 | Progress Note-Hospitalist ---
Subjective HPI/CC On Admission Date Seen by Provider: Sep 08, 2018 Time Seen by Provider: 10:00 CC: Dyspnea with hypoxia HPI: This is a 62-year-old white female clinic patient of Dr. Taylor with a history of chronic pain with narcotic dependence and anxiety with early COPD who presented to the ER with shortness of breath and wheezing found to have significant hypoxia of 80 percent requiring IV steroids nebulizer treatments and oxygen supplementation. She reports that she felt badly for the past 2 days and has not required home oxygen in the past. She does not have a history of pulmonary function testing. She does appear to be a good candidate for pulmonary rehabilitation since she hasn't smoked for 3 years but apparently she vapes. Overall patient has stabilized during the hospital course with transfer to fourth floor. Subjective/Events-last exam Patient doing better Transferred from ICU and weaning off Vapotherm Needs vent to mask at MD Pulmonary rehab candidate Checked meds and labs Updated patient on the plan Review of Systems General: Fatigue Pulmonary: Dyspnea Focused Exam Lactate Level 09/06/18 00:40: Lactic Acid Level 0.65 Objective Exam Vital Signs Vital Signs Date Time Temp Pulse Resp B/P (MAP) Pulse Ox O2 Delivery O2 Flow Rate FiO2 09/08/18 09:57 97 Nasal Cannula 6.00 09/08/18 09:54 59 09/08/18 09:30 98.2 18 146/76 (99) 09/08/18 08:00 50 Capillary Refill : Less Than 3 Seconds General Appearance: No Apparent Distress, WD/WN, Chronically ill Respiratory: Chest Non Tender, Normal Breath Sounds, No Accessory Muscle Use, No Respiratory Distress, Decreased Breath Sounds, Wheezing Cardiovascular: Regular Rate, Rhythm, No Edema, No Gallop, No JVD, No Murmur, Normal Peripheral Pulses Neurologic/Psychiatric: Alert, Oriented x3, No Motor/Sensory Deficits, Normal Mood/Affect Results/Procedures Lab Laboratory Tests 09/08/18 03:23 Patient resulted labs reviewed. Assessment/Plan Assessment and Plan Assess & Plan/Chief Complaint Assessment: New onset exacerbation of COPD with new worsening with hypoxia and hypercapnia on ABG requiring transfer yesterday to ICU and Dr. Waterman pulmonology consultation along with CT angiogram to rule out pulmonary embolism which only revealed COPD changes Former smoker quit 3 years ago Bacterial bronchitis Strep pneumoniae on Cx Chronic pain Anxiety Plan: Oxygen Will need vent to mask IV steroids Monitor labs Lovenox SCDs Monitor closely Diagnosis/Problems Diagnosis/Problems (1) Respiratory insufficiency Status: Resolved Resolution Date/Time: 09/08/18 @ 11:52 (2) COPD exacerbation Status: Acute (3) Acute bronchitis Status: Acute Qualifiers: Bronchitis organism: unspecified organism Qualified Codes: J20.9 - Acute bronchitis, unspecified (4) Hypoxia Status: Acute (5) Chronic pain Status: Chronic Qualifiers: Chronic pain type: chronic pain syndrome Qualified Codes: G89.4 - Chronic pain syndrome (6) Anxiety Status: Chronic (7) Thrombocytopenia Status: Acute Clinical Quality Measures DVT/VTE Risk/Contraindication: Risk Factor Score Per Nursin RFS Level Per Nursing on Admit: 4+=Very High OSMEL PATHAK DO Sep 08, 2018 10:40
[2018-09-08] MEDS: ONDANSETRON 4 MG/2 ML (SDV) Z0FRAN IVP PRN (17:30)
[2018-09-08] MEDS: RT-ADVAIR HFA 115/21 MCG PER PUFF IH SCH (18:42)
[2018-09-08] MEDS: cefTRIAXone 1 GM/NS 50 ML IVPB IV SCH ×2 (21:27)
[2018-09-09] VITALS: BP 118/75
[2018-09-09] MEDS: methylPREDNISolone 40 MG/ML (Solu-MEDROL) VIAL IV SCH ×2 (00:02→06:24)
[2018-09-09] MEDS: RT-ALBUTEROL/IPRATROPIUM 3 ML (DUONEB) VIAL INH SCH ×5 (01:41→20:03)
[2018-09-09 04:00] VITALS: BP 106/72
[2018-09-09 06:01] LABS: BASOPHILS % (AUTO) 0 % (0-10); EOSINOPHILS % (AUTO) 0 % (0-10); HEMATOCRIT 45 % (35-52); HEMOGLOBIN 14.7 G/DL (11.5-16.0); LYMPHOCYTES # (AUTO) 0.6 X 10^3 (1.0-4.0); LYMPHOCYTES % (AUTO) 5 % (12-44); MEAN CORPUSCULAR HEMOGLOBIN 30 PG (25-34); MEAN CORPUSCULAR HGB CONC 33 G/DL (32-36); MEAN CORPUSCULAR VOLUME 92 FL (80-99); MONOCYTES # (AUTO) 0.5 X 10^3 (0.0-1.0); MONOCYTES % (AUTO) 4 % (0-12); NEUTROPHILS # (AUTO) 11.9 X 10^3 (1.8-7.8); NEUTROPHILS % (AUTO) 92 % (42-75); PLATELET COUNT 124 10^3/uL (130-400); RED BLOOD COUNT 4.85 10^6/uL (4.35-5.85); RED CELL DISTRIBUTION WIDTH 12.7 % (10.0-14.5)
[2018-09-09 06:20] LABS: BUN/CREATININE RATIO 23; CALCIUM 8.9 MG/DL (8.5-10.1); CARBON DIOXIDE 30 MMOL/L (21-32); CHLORIDE 100 MMOL/L (98-107); CREATININE SERUM 0.75 MG/DL (0.60-1.30); GFR ESTIMATED > 60; GLUCOSE 104 MG/DL (70-105); MAGNESIUM 2.3 MG/DL (1.8-2.4); PHOSPHORUS 3.6 MG/DL (2.3-4.7); POTASSIUM 5.3 MMOL/L (3.6-5.0); SODIUM 139 MMOL/L (135-145)
[2018-09-09] MEDS: VITAMIN D3 1,000 UNITS (CHOLECALCIFEROL) TABLET PO SCH (06:24)
[2018-09-09] MEDS: ALPRAZolam 0.5 MG (XANAX) TAB PO SCH ×3 (06:24→21:02)
[2018-09-09] MEDS: RT-ADVAIR HFA 115/21 MCG PER PUFF IH SCH ×2 (07:01→20:03)
--- NOTE | 2018-09-09 08:13 | Pulmonary Progress Note ---
Subjective Time Seen by a Provider: 08:48 Subjective/Events-last exam Pt feels improved. She is still requiring oxygen. Sepsis Event Evaluation Height, Weight, BMI Height: 5'8.00" Weight: 160lbs. 0.0oz. 72.980796zj; 23.3 BMI Method:Stated Exam Exam Vital Signs Date Time Temp Pulse Resp B/P (MAP) Pulse Ox O2 Delivery O2 Flow Rate FiO2 09/09/18 06:52 96 Nasal Cannula 3.00 09/09/18 04:00 96.5 68 20 106/72 (83) 96 Nasal Cannula 5.00 09/09/18 01:42 94 Nasal Cannula 3.00 09/09/18 01:00 58 09/09/18 00:00 97.8 59 20 118/75 (89) 97 Nasal Cannula 5.00 09/08/18 22:00 97 Nasal Cannula 5.00 09/08/18 20:00 97.8 71 18 154/83 (106) 95 Nasal Cannula 5.00 09/08/18 20:00 97 Nasal Cannula 5.00 09/08/18 20:00 95 Nasal Cannula 5.00 09/08/18 19:00 69 09/08/18 18:48 98 Nasal Cannula 5.00 09/08/18 18:42 97 Nasal Cannula 6.00 09/08/18 16:00 97.0 59 20 129/63 (85) 99 Nasal Cannula 5.00 09/08/18 16:00 97 Nasal Cannula 6.00 09/08/18 14:58 97 Nasal Cannula 6.00 09/08/18 13:04 72 09/08/18 12:00 94 High Flow N/C 5.00 09/08/18 12:00 97.9 59 20 112/72 (85) 95 Nasal Cannula 5.00 09/08/18 09:57 97 Nasal Cannula 6.00 09/08/18 09:54 59 09/08/18 09:30 98.2 61 18 146/76 (99) 94 Nasal Cannula 5.00 I & O 09/09/18 07:00 Intake Total 2430 ml Balance 2430 ml Height & Weight Height: 5'8.00" Weight: 160lbs. 0.0oz. 72.208079vp; 23.3 BMI Method:Stated General Appearance: No Apparent Distress, WD/WN, Chronically ill HEENT: PERRL/EOMI, Normal ENT Inspection, Pharynx Normal Neck: Full Range of Motion, Normal Inspection, Non Tender, Supple, Carotid Bruit Respiratory: Chest Non Tender, Normal Breath Sounds, No Accessory Muscle Use, No Respiratory Distress, Decreased Breath Sounds, Wheezing Cardiovascular: Regular Rate, Rhythm, No Edema, No Gallop, No JVD, No Murmur, Normal Peripheral Pulses Capillary Refill: Less Than 3 Seconds Extremity: Normal Capillary Refill, Normal Inspection, Normal Range of Motion, Non Tender, No Calf Tenderness, No Pedal Edema Neurologic/Psychiatric: Alert, Oriented x3, No Motor/Sensory Deficits, Normal Mood/Affect Skin: Normal Color, Warm/Dry Lymphatic: No Adenopathy Results Lab Laboratory Tests 09/08/18 03:23 09/09/18 05:02 Assessment/Plan Assessment/Plan Acute on chronic respiratory failure COPDAE with hypoxia -Pt is very high risk for multiple recurrent hospitalizations secondary to chronic respiratory failure -Pt will benefit from home vent to mask. I will try to arrange for this -SVNS, Steroids -Change solumedrol to prednisone -CT of chest - reviewed -vapotherm -Noninvasive ventilation QHS and PRN Severe COPDwith AE -Doubt PNA -D/C Rocephin -PT will need home 02 -SVNS Anxiety KAHTERYN LIRA DO Sep 09, 2018 08:13
[2018-09-09 08:14] VITALS: BP 139/67
--- NOTE | 2018-09-09 09:11 | Diagnostic Imaging Report ---
INDICATION: COPD. FINDINGS: Portable chest shows normal heart size and vascularity. The lungs are clear. There is no effusion or pneumothorax. There is no bony abnormality. IMPRESSION: Normal chest with no change from 09/08/2018. Dictated by: Dictated on workstation # [id number]
[2018-09-09] MEDS: ENOXAPARIN 40 MG/0.4 ML (LOVENOX) SYR SC SCH (09:28)
[2018-09-09] MEDS: ESTRADIOL 1 MG TAB (ESTRACE) PO SCH (09:28)
[2018-09-09] MEDS: predniSONE 10 MG TAB PO SCH (09:28)
[2018-09-09] MEDS: lisINopril 20 MG (PRINIVIL) TABLET PO SCH (09:28)
[2018-09-09] MEDS: AZITHROMYCIN 250 MG TAB (ZITHROMAX) PO SCH (09:28)
[2018-09-09] MEDS: PROPRANOLOL 20 MG (INDERAL) TABLET PO SCH ×2 (09:28→21:02)
[2018-09-09] MEDS: ONDANSETRON 4 MG/2 ML (SDV) Z0FRAN IVP PRN (10:25)
--- NOTE | 2018-09-09 11:19 | Progress Note-Hospitalist ---
Progress Note Progress Notes/Assess & Plan Date Seen 09/09/18 Time Seen by Provider: 11:15 Assessment & Plan The patient is a 62-year-old white female known to me for nearly 40 years. She was admitted earlier in the week after presenting with wheezing, dyspnea, unrelenting cough. She reports that she is doing better at this time however still troubled by proximal-isms of coughing. She has been afebrile. She is presently on O2 by nasal cannula at 2 L/m with SaO2's of 92 or better. Physical exam: Lungs show distant breath sounds but no wheezing at this time. CV is regular. Abdomen is soft. Extremities show no pedal edema. She is able to speak in complete sentences albeit short. Impression: COPD/tobaccoism. 2.hepatitis C post successful antiviral therapy. 3.suspect viral component to the exacerbation of pulmonary symptoms. No Impression: Patient to began walking in the halls with assistance. DC telemetry. YASEMIN FOWLER MD Sep 09, 2018 11:19
[2018-09-09] MEDS: DOCUSATE SODIUM 100 MG (COLACE) CAP PO PRN (14:20)
[2018-09-09 16:00] VITALS: BP 133/60
[2018-09-10] VITALS: BP 135/68
[2018-09-10] MEDS: RT-ALBUTEROL/IPRATROPIUM 3 ML (DUONEB) VIAL INH SCH ×4 (02:28→20:06)
[2018-09-10] MEDS: ALPRAZolam 0.5 MG (XANAX) TAB PO SCH ×3 (06:04→21:26)
[2018-09-10] MEDS: VITAMIN D3 1,000 UNITS (CHOLECALCIFEROL) TABLET PO SCH (06:04)
--- NOTE | 2018-09-10 06:11 | Diagnostic Imaging Report ---
INDICATION: Exacerbation of COPD Upright chest shows normal heart size and vascularity. The lungs are clear. There is no effusion or pneumothorax. There is no bony abnormality. IMPRESSION: Normal chest with no change from 09/09/2018. Dictated by: Dictated on workstation # [id number]
--- NOTE | 2018-09-10 06:12 | Pulmonary Progress Note ---
Subjective Time Seen by a Provider: 06:12 Subjective/Events-last exam Pt appears to be doing better. still requiring oxygen Sepsis Event Evaluation Height, Weight, BMI Height: 5'8.00" Weight: 160lbs. 0.0oz. 72.150609ky; 23.3 BMI Method:Stated Exam Exam Vital Signs Date Time Temp Pulse Resp B/P (MAP) Pulse Ox O2 Delivery O2 Flow Rate FiO2 09/10/18 02:28 94 Nasal Cannula 2.00 09/09/18 20:08 Nasal Cannula 2.00 09/09/18 20:03 94 Nasal Cannula 2.00 09/09/18 20:00 97 Nasal Cannula 5.00 09/09/18 16:00 98.3 60 18 133/60 (84) 94 Nasal Cannula 5.00 09/09/18 08:14 98.5 72 18 139/67 (91) 92 Nasal Cannula 5.00 09/09/18 08:00 Nasal Cannula 2.00 09/09/18 07:49 67 96 09/09/18 07:01 73 09/09/18 06:52 96 Nasal Cannula 3.00 I & O 09/10/18 06:59 Intake Total 1650 ml Balance 1650 ml Height & Weight Height: 5'8.00" Weight: 160lbs. 0.0oz. 72.589577rv; 23.3 BMI Method:Stated General Appearance: No Apparent Distress, WD/WN, Anxious, Chronically ill, Thin HEENT: PERRL/EOMI, Normal ENT Inspection, Pharynx Normal Neck: Full Range of Motion, Normal Inspection, Non Tender, Supple, Carotid Bruit Respiratory: Normal Breath Sounds, Accessory Muscle Use, Wheezing Cardiovascular: Regular Rate, Rhythm, No Edema, No Gallop, No JVD, No Murmur, Normal Peripheral Pulses Capillary Refill: Less Than 3 Seconds Extremity: Normal Capillary Refill, Normal Inspection, Normal Range of Motion, Non Tender, No Calf Tenderness, No Pedal Edema Neurologic/Psychiatric: Alert, Oriented x3, No Motor/Sensory Deficits, Normal Mood/Affect Skin: Normal Color, Warm/Dry Lymphatic: No Adenopathy Results Lab Laboratory Tests 09/09/18 05:02 Assessment/Plan Assessment/Plan Acute on chronic respiratory failure COPDAE with hypoxia -Pt is very high risk for multiple recurrent hospitalizations secondary to chronic respiratory failure -Pt will benefit from home vent to mask. I will try to arrange for this -SVNS, Steroids -prednisone taper -CT of chest - reviewed -Noninvasive ventilation QHS and PRN Severe COPDwith AE -Doubt PNA -D/C Rocephin -PT will need home 02 -SVNS Anxiety Pt is ok for discharge from pulmonary standpoint. SHe will need 02 qualification testing. KATHERYN LRIA DO Sep 10, 2018 06:12
[2018-09-10] MEDS: DOCUSATE SODIUM 100 MG (COLACE) CAP PO PRN (08:39)
[2018-09-10 08:40] VITALS: BP 130/60
[2018-09-10] MEDS: ENOXAPARIN 40 MG/0.4 ML (LOVENOX) SYR SC SCH (08:40)
[2018-09-10] MEDS: ESTRADIOL 1 MG TAB (ESTRACE) PO SCH (08:40)
[2018-09-10] MEDS: lisINopril 20 MG (PRINIVIL) TABLET PO SCH (08:40)
[2018-09-10] MEDS: AZITHROMYCIN 250 MG TAB (ZITHROMAX) PO SCH (08:40)
[2018-09-10] MEDS: predniSONE 10 MG TAB PO SCH (08:40)
[2018-09-10] MEDS: PROPRANOLOL 20 MG (INDERAL) TABLET PO SCH ×2 (08:40→21:26)
[2018-09-10] MEDS: RT-ADVAIR HFA 115/21 MCG PER PUFF IH SCH ×2 (09:24→20:06)
--- NOTE | 2018-09-10 09:31 | NUR ---
HOME 02 QUALIFICATION--- pt desaturated to 88% ON RA after 5 MINS. PT Will qualify for 02 during Rest and Ambulation. Pt's sp02 on 2lpm roselia to 92 after 5 mins. PT WILL NEED TO GO HOME 0N 2LPM. Addendum: 09/10/18 at 0931 by MYRTLE RIVAS RT Amended: Links added.
--- NOTE | 2018-09-10 12:46 | Progress Note-Hospitalist ---
Progress Note Progress Notes/Assess & Plan Date Seen 09/10/18 Time Seen by Provider: 12:44 Assessment & Plan The patient continues to make progress. She reports that she is not thrilled with the heart healthy diet. Dr. Waterman believe she is ready to go home but will require Vapotherm at home. This cannot be delivered until tomorrow. Physical exam: She is alert and oriented. Lungs reveal breath sounds which are distant but heard in all lung segura. CV is regular. Extremities show no pedal edema. Impression: COPD with acute exacerbation. 2.history of hepatitis C post antiviral treatment and apparent cure. Plan: If stable discharge tomorrow after delivery of home oxygen. YASEMIN FOWLER MD Sep 10, 2018 12:46
[2018-09-10 16:00] VITALS: BP 125/60
[2018-09-11] VITALS: BP 125/60
[2018-09-11] MEDS: RT-ALBUTEROL/IPRATROPIUM 3 ML (DUONEB) VIAL INH SCH ×3 (03:05→15:02)
--- NOTE | 2018-09-11 06:13 | Pulmonary Progress Note ---
Subjective Time Seen by a Provider: 06:12 Subjective/Events-last exam PT is doing better. No complications noted. Sepsis Event Evaluation Height, Weight, BMI Height: 5'8.00" Weight: 162lbs. 5.0oz. 73.747920aj; 23.3 BMI Method:Stated Exam Exam Vital Signs Date Time Temp Pulse Resp B/P (MAP) Pulse Ox O2 Delivery O2 Flow Rate FiO2 09/11/18 03:05 95 Nasal Cannula 2.00 09/11/18 00:00 97.3 52 18 125/60 (81) 100 Nasal Cannula 3.00 09/10/18 20:12 Nasal Cannula 2.00 09/10/18 20:07 94 Nasal Cannula 2.00 09/10/18 20:00 Nasal Cannula 2.00 09/10/18 16:00 97.3 62 18 125/60 (81) 98 Nasal Cannula 2.00 09/10/18 09:28 2.00 09/10/18 09:27 Nasal Cannula 2.00 09/10/18 09:25 94 Nasal Cannula 2.00 09/10/18 08:40 98.0 65 18 130/60 (83) 91 Nasal Cannula 5.00 09/10/18 07:45 Nasal Cannula 3.00 I & O 09/11/18 07:00 Intake Total 1420 ml Balance 1420 ml Height & Weight Height: 5'8.00" Weight: 162lbs. 5.0oz. 73.483589jx; 23.3 BMI Method:Stated General Appearance: No Apparent Distress, WD/WN, Anxious, Chronically ill, Thin HEENT: PERRL/EOMI, Normal ENT Inspection, Pharynx Normal Neck: Full Range of Motion, Normal Inspection, Non Tender, Supple, Carotid Bruit Respiratory: Normal Breath Sounds, Accessory Muscle Use, Wheezing Cardiovascular: Regular Rate, Rhythm, No Edema, No Gallop, No JVD, No Murmur, Normal Peripheral Pulses Capillary Refill: Less Than 3 Seconds Extremity: Normal Capillary Refill, Normal Inspection, Normal Range of Motion, Non Tender, No Calf Tenderness, No Pedal Edema Neurologic/Psychiatric: Alert, Oriented x3, No Motor/Sensory Deficits, Normal Mood/Affect Skin: Normal Color, Warm/Dry Lymphatic: No Adenopathy Assessment/Plan Assessment/Plan Acute on chronic respiratory failure COPDAE with hypoxia -Pt is very high risk for multiple recurrent hospitalizations secondary to chronic respiratory failure -Pt will benefit from home vent to mask. I will try to arrange for this -SVNS, Steroids -prednisone taper -CT of chest - reviewed -Noninvasive ventilation QHS and PRN Severe COPDwith AE -Doubt PNA -D/C Rocephin -PT will need home 02 qualification prior to discharge -SVNS Anxiety Pt is ok for discharge from pulmonary standpoint. SHe will need 02 qualification testing. KATHERYN LIRA DO Sep 11, 2018 06:13
[2018-09-11] MEDS: VITAMIN D3 1,000 UNITS (CHOLECALCIFEROL) TABLET PO SCH (06:39)
[2018-09-11] MEDS: ALPRAZolam 0.5 MG (XANAX) TAB PO SCH ×2 (06:39→13:40)
[2018-09-11 08:00] VITALS: BP 150/69
[2018-09-11] MEDS ORDERED: PRED10TA22 PO (08:15)
[2018-09-11] MEDS ORDERED: RT-ALBUINH IH (08:15)
--- NOTE | 2018-09-11 08:17 | Discharge Inst-Simple/Standard ---
Discharge Inst-Standard Discharge Medications New, Converted or Re-Newed RX: Transmitted to Pharmacy Patient Instructions/Follow Up Plan of Care/Instructions/FU: Please continue to take your medications as written and follow up with Dr Taylor and Dr Waterman as scheduled. Activity as Tolerated: Yes Discharge Diet: No Restrictions Return to The Hospital For: Shortness of breath, worsening cough, fever, chest pain, if you feel you are getting worse. Planned Outpatient Orders/Ref. Pneu Vac Indicated: Yes MARIA ANTONIA CONWAY MD Sep 11, 2018 08:17
[2018-09-11] MEDS: predniSONE 10 MG TAB PO SCH (08:44)
[2018-09-11] MEDS: DOCUSATE SODIUM 100 MG (COLACE) CAP PO PRN (08:44)
[2018-09-11] MEDS: ENOXAPARIN 40 MG/0.4 ML (LOVENOX) SYR SC SCH (08:45)
[2018-09-11] MEDS: ESTRADIOL 1 MG TAB (ESTRACE) PO SCH (08:45)
[2018-09-11] MEDS: PROPRANOLOL 20 MG (INDERAL) TABLET PO SCH (08:52)
[2018-09-11] MEDS: lisINopril 20 MG (PRINIVIL) TABLET PO SCH (08:52)
--- NOTE | 2018-09-11 08:58 | Discharge Summary-Hospitalist ---
Diagnosis/Chief Complaint Date of Admission Sep 06, 2018 at 02:48 Date of Discharge Discharge Date: Sep 11, 2018 Admission Diagnosis Assessment: New onset exacerbation of COPD Former smoker quit 3 years ago Bacterial bronchitis placed on empiric antibiotics Chronic pain Anxiety Plan: IV steroids Nebulizer treatments Home O2 evaluation Ambulate Transfer to fourth floor Home meds Discharge Diagnosis (1) Respiratory insufficiency Status: Resolved (2) COPD exacerbation Status: Acute (3) Acute bronchitis Status: Acute (4) Hypoxia Status: Acute (5) Chronic pain Status: Chronic (6) Anxiety Status: Chronic (7) Thrombocytopenia Status: Acute Discharge Summary Procedures/Consulations Dr Waterman Discharge Physical Exam Allergies: Coded Allergies: No Allergy Information Available (Unverified , 04/05/14) Vitals & I&Os Vital Signs Date Time Temp Pulse Resp B/P (MAP) Pulse Ox O2 Delivery O2 Flow Rate FiO2 09/11/18 15:03 92 Nasal Cannula 2.00 09/11/18 08:00 97.4 74 20 150/69 (96) 09/08/18 08:00 50 General Appearance: No Apparent Distress, WD/WN Respiratory: Lungs Clear, No Respiratory Distress Neurologic/Psychiatric: Alert, Oriented x3 Hospital Course Pt was admitted for respiratory distress due to COPD exacerbation. She responded well to steroids and had an unremarkable hospital stay. She was seen by Dr Waterman who will see her in her follow up. She was also tested for oxygen prior to discharge and found to have a 2lpm requirement at baseline. This was arranged for her at discharge. Labs (last 24 hrs) Microbiology 09/06/18 Blood Culture - Final, Complete No growth 09/06/18 MRSA Screen - Final, Complete MRSA not isolated Patient resulted labs reviewed. Discussion & Recommendations Discharge Planning: >30 minutes discharge planning Discharge Home Medications: Active Scripts Active Proair Hfa (Albuterol Sulfate) 1 Puff Puff 2 Puff IH Q4H 1 PUFF = 90 MCG Prednisone 10 Mg Tab.ds.pk 10 Mg PO DAILY Take 6 tabs(60mg)daily,decrease by 1 tab(10mg)every other day. Reported Symbicort 160-4.5 Mcg Inhaler (Budesonide/Formoterol Fumarate) 10.2 Gm Hfa.aer.ad 2 Puff INH BID Vitamin D3 (Cholecalciferol (Vitamin D3)) 1,000 Unit Tablet 1,000 Unit PO DAILY Alprazolam 0.5 Mg Tablet 0.5 Mg PO TID Oxycodone HCl 5 Mg Tablet 5 Mg PO BID Lisinopril 20 Mg Tablet 20 Mg PO DAILY Estradiol Tablet (Estradiol) 2 Mg Tablet 2 Mg PO DAILY Propranolol HCl 40 Mg Tablet 40 Mg PO BID Instructions to patient/family Please see electronic discharge instructions given to patient. Clinical Quality Measures DVT/VTE Risk/Contraindication: Risk Factor Score Per Nursin RFS Level Per Nursing on Admit: 4+=Very High Problem Qualifiers (1) Acute bronchitis: Bronchitis organism: unspecified organism Qualified Codes: J20.9 - Acute bronchitis, unspecified (2) Chronic pain: Chronic pain type: chronic pain syndrome Qualified Codes: G89.4 - Chronic pain syndrome MARIA ANTONIA CONWAY MD Sep 11, 2018 08:58
[2018-09-11] MEDS: ONDANSETRON 4 MG/2 ML (SDV) Z0FRAN IVP PRN (09:02)
[2018-09-11] MEDS: RT-ADVAIR HFA 115/21 MCG PER PUFF IH SCH (10:09)
--- NOTE | 2018-09-11 13:22 | NUR ---
CM/SS/DME: Coordinated new home O2 with patient preferred agency, [facility]. Anticipate delivery by 1330, patient needs to get to her pharmacy by 1500. RNA will update patient and offer that she could have someone lease picker her Rx to take the stress off regarding timeline.
--- NOTE | 2018-09-11 15:16 | NUR ---
Pastoral Care Visit.
== END 2018-09-11 15:29 | disposition home or self-care (01) | DRG 190 ==
LOC: EDUNIT# 23:49 → ER 23:50 → ICU 09-06 02:48 → 4TH 09-06 16:16 → ICU 09-07 13:26 → 4TH 09-08 09:29
PROVIDERS: ADMIT Internal Medicine; ATTEND Internal Medicine
DX: J44.1 Chronic obstructive pulmonary disease with (acute) exacerbation (principal); J96.21 Acute and chronic respiratory failure with hypoxia; J20.9 Acute bronchitis, unspecified; F41.9 Anxiety disorder, unspecified; G89.4 Chronic pain syndrome; F11.20 Opioid dependence, uncomplicated; I10 Essential (primary) hypertension; E78.00 Pure hypercholesterolemia, unspecified; D69.6 Thrombocytopenia, unspecified; Z87.891 Personal history of nicotine dependence; Z86.19 Personal history of other infectious and parasitic diseases
CPT/HCPCS: 36415; 36600; 71045; 71275; 80048; 80053; 82550; 82553; 82805; 83605; 83735; 83880; 84100; 84484; 85007; 85025; 85027; 85610; 85730; 87040; 87070; 87077; 87081; 87205; 87804; 93005; 93041; 94640; 94664; 94760; 94761; 96365; 96375

== ENCOUNTER 2020-12-22 03:35 | Inpatient (IN) | payer BC, MEDICARE ==
[2020-12-22] VITALS (9 sets, daily range): BP systolic 95–128; BP diastolic 46–69
[~2020-12-22] VITALS: Ht 170.2 cm; Wt 63.9 kg
[~2020-12-22 03:35] MED LIST changes: +ALPR0.5T7 PO; +AZIT500T PO; +BENZ100C18 PO; +BUDE10.2 INH; +CEFD300C3 PO; +CHOL10003 PO; +ESTR2TAB PO; +LISI20TA26 PO; +METH4TAB PO; +OXC5T PO; +PRED10TA22 PO; +PROP40TA5 PO; +RT-ALBUINH IH
[2020-12-22 03:57] LABS: ABG BASE EXCESS 7.1 MMOL/L (-2.5-2.5); ABG OXYGEN SATURATION 96 % (94-100); ABG PCO2 68 MMHG (35-45); ABG PO2 90 MMHG (79-93)
--- NOTE | 2020-12-22 03:57 | ED General ---
General Stated Complaint: SOB;FEVER Source of Information: Patient Exam Limitations: No Limitations History of Present Illness Date Seen by Provider: Dec 22, 2020 Time Seen by Provider: 03:30 Initial Comments Patient presents ER by EMS from home with chief complaint of shortness of air. EMS reports her SPO2 was 83% on room air when they arrived. She does not rely on supplemental oxygen. Her tonight due to complications from COVID-19 sustained in April 2020. Patient denies having been tested recently. She says she went to [facility] earlier in the week because she was having bronchitis and they put her on azithromycin and prednisone 50 mg a day. She has a history of COPD and has been using her ProAir throughout the day with diminishing returns. She had quite a bit of wheezing so a DuoNeb was given by EMS on route and her breathing relaxed and improved. Oxygen saturation was 100% on the DuoNeb. She denies any nausea vomiting diarrhea or constipation. She had a fever of 100.3 per EMS when they arrived. No history of heart problems. Allergies and Home Medications Allergies Coded Allergies: No Known Drug Allergies (Unverified , 12/22/20) Home Medications Albuterol Sulfate 1 Puff Puff, 2 PUFF IH Q4H 1 PUFF = 90 MCG Prescribed by: MARIA ANTONIA CONWAY on 09/11/18814 Alprazolam 0.5 Mg Tablet, 0.5 MG PO TID, (Reported) Budesonide/Formoterol Fumarate 10.2 Gm Hfa.aer.ad, 2 PUFF INH BID, (Reported) Cholecalciferol (Vitamin D3) 1,000 Unit Tablet, 1,000 UNIT PO DAILY, (Reported) Estradiol 2 Mg Tablet, 2 MG PO DAILY, (Reported) Lisinopril 20 Mg Tablet, 20 MG PO DAILY, (Reported) Oxycodone Hcl 5 Mg Tablet, 5 MG PO BID, (Reported) Prednisone 10 Mg Tab.ds.pk, 10 MG PO DAILY Take 6 tabs(60mg)daily,decrease by 1 tab(10mg)every other day. Prescribed by: MARIA ANTONIA CONWAY on 09/11/18814 Propranolol HCl 40 Mg Tablet, 40 MG PO BID, (Reported) Patient Home Medication List Home Medication List Reviewed: Yes Review of Systems Review of Systems Constitutional: No chills; fever, malaise EENTM: No hearing loss, No ear pain Respiratory: cough, phlegm, short of breath, wheezing Cardiovascular: No chest pain, No edema, No Hx of Intervention, No palpitations Gastrointestinal: No abdominal pain, No constipation, No nausea Genitourinary: No discharge, No dysuria Musculoskeletal: No back pain, No joint pain Psychiatric/Neurological: Denies Anxiety, Denies Depressed All Other Systems Reviewed Negative Unless Noted: Yes Past Hwhvgof-Pnbhqo-Gyjpbd Hx Patient Social History Alcohol Use: Denies Use Smoking Status: Former Smoker Type Used: Cigarettes, Electronic/Vapor Former Smoker, Quit: Aug 07, 2018 Recent Hopitalizations: No Immunizations Up To Date Date of Influenza Vaccine: Jul 07, 2018 Seasonal Allergies Seasonal Allergies: No Past Medical History Surgeries: Yes Appendectomy, Gallbladder, Hysterectomy, Lumpectomy, Orthopedic, Tubal Ligation Respiratory: Yes Chronic Bronchitis, COPD Currently Using CPAP: No Currently Using BIPAP: No Cardiac: Yes High Cholesterol, Hypertension Neurological: No PHARMACEUTICAL REPRESENTATIVE History: Menopausal Genitourinary: No Gastrointestinal: Yes Liver Disease/Jaundice Musculoskeletal: No Arthritis Endocrine: No HEENT: No Cancer: No Breast Psychosocial: Yes Anxiety Integumentary: No Blood Disorders: No Adverse Reaction/Blood Tranf: No Family Medical History Completed stroke 19 FATHER, Onset:60 years & older FH: lung cancer 19 MOTHER, Onset:60 years & older FH: rheumatoid arthritis G8 SISTER, Onset:25's - 30 Myocardial infarction G8 BROTHER, Onset:50's - 60 Sjogren's disease G8 SISTER, Onset:30's - 40 No Pertinent Family Hx Physical Exam-Suspected Sepsis Physical Exam Vital Signs Vital Signs - First Documented 12/22/20 12/22/20 03:35 03:50 Temp 36.7 Pulse 75 Resp 20 B/P (MAP) 147/71 (96) Pulse Ox 91 O2 Delivery Nasal Cannula O2 Flow Rate 2.00 Capillary Refill : Height, Weight, BMI Height: 5'8.00" Weight: 162lbs. 5.0oz. 73.379757bq; 23.3 BMI Method:Stated General Appearance: WD/WN, Moderate Distress Eyes: Bilateral Eye Normal Inspection, Bilateral Eye PERRL, Bilateral Eye EOMI HEENT: PERRL/EOMI, Pharynx Normal, Moist Mucous Membranes Neck: Full Range of Motion, Normal Inspection, Non Tender Respiratory: No Accessory Muscle Use, Decreased Breath Sounds, Respiratory Distress (Mild to moderate with breathing 20 to 22 breaths/min, oxygen saturation 98% on room air and no expiratory wheezing heard) Cardiovascular: Regular Rate, Rhythm, No Edema, No Murmur, Normal Peripheral Pulses Gastrointestinal: Non Tender, Soft Extremity: Normal Capillary Refill, Normal Inspection, No Pedal Edema Neurologic/Psychiatric: Alert, Oriented x3, Other (Flat affect, delayed responses) Skin: normal color, cool Focused Exam Sepsis Stage: Sepsis Possible Source: Pulmonary Lactate Level 12/22/20 03:38: Lactic Acid Level 0.66 Time of Focused Exam: 04:55 Respiratory: Lungs Clear, Normal Breath Sounds, No Accessory Muscle Use, Other (Tolerating BiPAP well 15/6 FiO2 21% with oxygen saturation) Cardiovascular: Regular Rate, Rhythm, No Edema, Normal Peripheral Pulses Capillary Refill: Less Than 3 Seconds Lactic Acid Level Laboratory Tests Test 12/22/20 03:38 Lactic Acid Level 0.66 MMOL/L (0.50-2.00) Progress/Results/Core Measures Suspected Sepsis SIRS Temperature: Pulse: Respiratory Rate: Laboratory Tests 12/22/20 03:38: White Blood Count 6.2 Blood Pressure / Mean: 12/22/20 03:38: Lactic Acid Level 0.66 Laboratory Tests 12/22/20 03:38: Creatinine 0.92, INR Comment 0.9, Platelet Count 109L, Total Bilirubin 0.4 Results/Orders Lab Results Laboratory Tests Test 12/22/20 03:38 12/22/20 03:40 12/22/20 04:32 Range/Units White Blood Count 6.2 4.3-11.0 10^3/uL Red Blood Count 5.08 3.80-5.11 10^6/uL Hemoglobin 15.3 11.5-16.0 g/dL Hematocrit 47 35-52 % Mean Corpuscular Volume 93 80-99 fL Mean Corpuscular Hemoglobin 30 25-34 pg Mean Corpuscular Hemoglobin Concent 32 32-36 g/dL Red Cell Distribution Width 12.0 10.0-14.5 % Platelet Count 109 L 130-400 10^3/uL Mean Platelet Volume 11.8 9.0-12.2 fL Immature Granulocyte % (Auto) 0 % Neutrophils (%) (Auto) 65 42-75 % Lymphocytes (%) (Auto) 23 12-44 % Monocytes (%) (Auto) 9 0-12 % Eosinophils (%) (Auto) 2 0-10 % Basophils (%) (Auto) 1 0-10 % Neutrophils # (Auto) 4.1 1.8-7.8 10^3/uL Lymphocytes # (Auto) 1.4 1.0-4.0 10^3/uL Monocytes # (Auto) 0.6 0.0-1.0 10^3/uL Eosinophils # (Auto) 0.1 0.0-0.3 10^3/uL Basophils # (Auto) 0.0 0.0-0.1 10^3/uL Immature Granulocyte # (Auto) 0.0 0.0-0.1 10^3/uL Prothrombin Time 12.8 12.2-14.7 SEC INR Comment 0.9 0.8-1.4 Activated Partial Thromboplast Time 37 H 24-35 SEC D-Dimer 0.34 0.00-0.49 UG/ML Sodium Level 142 135-145 MMOL/L Potassium Level 4.2 3.6-5.0 MMOL/L Chloride Level 100 98-107 MMOL/L Carbon Dioxide Level 33 H 21-32 MMOL/L Anion Gap 9 5-14 MMOL/L Blood Urea Nitrogen 11 7-18 MG/DL Creatinine 0.92 0.60-1.30 MG/DL Estimat Glomerular Filtration Rate > 60 BUN/Creatinine Ratio 12 Glucose Level 98 70-105 MG/DL Lactic Acid Level 0.66 0.50-2.00 MMOL/L Calcium Level 9.4 8.5-10.1 MG/DL Corrected Calcium 9.5 8.5-10.1 MG/DL Total Bilirubin 0.4 0.1-1.0 MG/DL Aspartate Amino Transf (AST/SGOT) 22 5-34 U/L Alanine Aminotransferase (ALT/SGPT) 27 0-55 U/L Alkaline Phosphatase 44 40-136 U/L C-Reactive Protein High Sensitivity 0.05 0.00-0.50 MG/DL B-Type Natriuretic Peptide 26.6 <100.0 PG/ML Total Protein 6.8 6.4-8.2 GM/DL Albumin 3.9 3.2-4.5 GM/DL Procalcitonin 0.02 <0.10 NG/ML Coronavirus 2019 (JUDIE) Negative Negative Blood Gas Puncture Site RT RADIAL Blood Gas Patient Temperature 100.3 Arterial Blood pH 7.31 *L 7.37-7.43 Arterial Blood Partial Pressure CO2 68 H 35-45 MMHG Arterial Blood Partial Pressure O2 90 79-93 MMHG Arterial Blood HCO3 33 H 23-27 MMOL/L Arterial Blood Total CO2 35.0 H 21.0-31.0 MMOL/L Arterial Blood Oxygen Saturation 96 94-100 % Arterial Blood Base Excess 7.1 H -2.5-2.5 MMOL/L Zohaib Test YES-POS Blood Gas Ventilator Setting NO Blood Gas Inspired Oxygen ROOM AIR Micro Results Microbiology 12/22/20 Influenza Types A,B Antigen (ROYAL) - Final, Complete My Orders Orders - PASTORA ALBERTO Cbc With Automated Diff (12/22/20 03:49) Comprehensive Metabolic Panel (12/22/20 03:49) Blood Culture (12/22/20 03:49) Sputum Culture (12/22/20 03:49) Urinalysis (12/22/20 03:49) Urine Culture (12/22/20 03:49) Protime With Inr (12/22/20 03:49) Partial Thromboplastin Time (12/22/20 03:49) Chest 1 View, Ap/Pa Only (12/22/20 03:49) Acetaminophen Tablet (Tylenol Tablet) (12/22/20 04:00) Ed Iv/Invasive Line Start (12/22/20 03:49) Ed Iv/Invasive Line Start (12/22/20 03:49) Vital Signs Adult Sepsis Patie Q15M (12/22/20 03:49) O2 (12/22/20 03:49) Remove Rings In Anticipation O (12/22/20 03:49) Lactic Acid Analyzer (12/22/20 03:49) Influenza A And B Antigens (12/22/20 03:49) Lactated Ringers (Lr 1000 Ml Iv Solution (12/22/20 04:00) Ceftriaxone For Iv Use (Rocephin For I (12/22/20 04:00) Azithromycin Injection (Zithromax Inject (12/22/20 04:00) Covid 19 Inhouse Test (12/22/20 03:49) Hs C Reactive Protein (12/22/20 03:49) Fibrin Degradation Products (12/22/20 03:49) BNP (12/22/20 03:49) Procalcitonin (Pct) (12/22/20 03:49) Dexamethasone Injection (Decadron Injec (12/22/20 04:00) Arterial Blood Gas (12/22/20 03:49) Coronavirus Sars-Cov-2 So 2018 (12/22/20 04:28) Ondansetron Injection (Zofran Injectio (12/22/20 04:45) Ondansetron Injection (Zofran Injectio (12/22/20 04:27) Medications Given in ED Current Medications Medications Dose Ordered Sig/Jean Route Start Time Stop Time Status Last Admin Dose Admin Acetaminophen 1,000 mg ONCE PRN PO 12/22/20 04:00 12/22/20 04:34 DC 12/22/20 04:34 1,000 MG Azithromycin 500 mg/Sodium Chloride 255 ml @ 250 mls/hr ONCE ONCE IV 12/22/20 04:00 12/22/20 05:01 12/22/20 04:22 250 MLS/HR Ceftriaxone Sodium 1000 mg/ Sterile Water 10 ml @ 200 mls/hr ONCE ONCE IV 12/22/20 04:00 12/22/20 04:02 DC 12/22/20 04:19 200 MLS/HR Dexamethasone Sodium Phosphate 10 mg ONCE ONCE IV 12/22/20 04:00 12/22/20 04:01 DC 12/22/20 04:17 10 MG Lactated Ringer's 1,000 ml @ 0 mls/hr Q0M ONCE IV 12/22/20 04:00 12/22/20 04:01 DC 12/22/20 04:18 0 MLS/HR Ondansetron HCl 8 mg ONCE ONCE IVP 12/22/20 04:45 12/22/20 04:46 DC 12/22/20 04:34 8 MG Vital Signs/I&O 12/22/20 12/22/20 12/22/20 12/22/20 03:35 03:50 04:20 04:34 Temp 36.7 36.7 Pulse 75 69 Resp 20 23 B/P (MAP) 147/71 (96) Pulse Ox 91 100 O2 Delivery Nasal Cannula O2 Flow Rate 2.00 21.00 Capillary Refill : Progress Note #1: Time: 03:56 Progress Note Suspect a COPD exacerbation but since she is having a fever we will get a Covid and flu swab and look for pneumonia with a septic work-up. Blood cultures and will do a conservative 1 L of fluid since we suspect COVID-19. Rocephin and azithromycin since she is already being treated outpatient with antibiotics. ABG since her oxygen saturation is now in the upper 90s on room air with only marginally increased work of breathing. Decadron 10 mg IV. Suspect her affect is related to the grieving process. ABG looks legit seems to show respiratory acidosis probably secondary to a COPD exacerbation. Plan to put her on BiPAP 12/6. 21% FiO2. Progress Note #2: Time: 05:01 Progress Note The patient is tolerating the BiPAP well. She is a little more lucid. Chaparrita put her in the ICU. She has requested to see the brick burner later today since her recently . We will get an ABG when she gets upstairs to reassess her COPD status. Ativan half milligram IV x1 now. Diagnostic Imaging Diagonstic Imaging: Xray Plain Films/CT/US/NM/MRI: chest Comments No acute cardiopulmonary processes on 1 view chest x-ray. COPD. Reviewed: Reviewed by Me Departure Communication (Admissions) Time/Spoke to Admitting Phy: 05:00 Discussed the case and plan to hold off on IV antibiotics at this time as I suspect Covid and have confirmed COPD exacerbation. She agrees with placement in the ICU for admission. Impression Primary Impression: Pneumonia Qualified Codes: J18.9 - Pneumonia, unspecified organism Additional Impressions: COPD exacerbation Acute respiratory failure with hypoxia and hypercapnia Person under investigation for COVID-19 Sepsis Qualified Codes: A41.9 - Sepsis, unspecified organism; R65.20 - Severe sepsis without septic shock; J96.02 - Acute respiratory failure with hypercapnia Grief reaction Disposition: ADMITTED INPATIENT Condition: Stable Admissions Decision to Admit Reason: Admit from ER (General) Decision to Admit/Date: Dec 22, 2020 Time/Decision to Admit Time: 04:00 Departure-Patient Inst. Referrals: [facility] [place] Primary Care Physician PASTORA ALBERTO Dec 22, 2020 03:57
[2020-12-22 03:58] LABS: ABG PH 7.31 (7.37-7.43); ALLENS TEST YES-POS; INSPIRED O2 ROOM AIR; PATIENT TEMP 100.3; VENTILATOR NO
[2020-12-22] MEDS ORDERED: LACTATED RINGERS 1,000 ML IV ONE (04:00)
[2020-12-22] MEDS ORDERED: AZITHROMYCIN INJECTION 500 MG in NS (IVPB) 250 ML IV ONE (04:00)
[2020-12-22] MEDS ORDERED: cefTRIAXone FOR IV USE 1,000 MG in WATER (STERILE) FOR INJECTION 10 ML IV ONE (04:00)
[2020-12-22] MEDS ORDERED: ACETAMINOPHEN 500 MG TAB (TYLENOL) PO PRN (04:00)
[2020-12-22 04:01] LABS: BASOPHILS % (AUTO) 1 % (0-10); EOSINOPHILS # (AUTO) 0.1 10^3/uL (0.0-0.3); EOSINOPHILS % (AUTO) 2 % (0-10); HEMATOCRIT 47 % (35-52); HEMOGLOBIN 15.3 g/dL (11.5-16.0); LYMPHOCYTES # (AUTO) 1.4 10^3/uL (1.0-4.0); LYMPHOCYTES % (AUTO) 23 % (12-44); MEAN CORPUSCULAR HEMOGLOBIN 30 pg (25-34); MEAN CORPUSCULAR HGB CONC 32 g/dL (32-36); MEAN CORPUSCULAR VOLUME 93 fL (80-99); MEAN PLATELET VOLUME 11.8 fL (9.0-12.2); MONOCYTES # (AUTO) 0.6 10^3/uL (0.0-1.0); MONOCYTES % (AUTO) 9 % (0-12); NEUTROPHILS # (AUTO) 4.1 10^3/uL (1.8-7.8); NEUTROPHILS % (AUTO) 65 % (42-75); PLATELET COUNT 109 10^3/uL (130-400); WHITE BLOOD COUNT 6.2 10^3/uL (4.3-11.0)
[2020-12-22 04:10] LABS: ALBUMIN 3.9 GM/DL (3.2-4.5)
[2020-12-22 04:11] LABS: CHLORIDE 100 MMOL/L (98-107); POTASSIUM 4.2 MMOL/L (3.6-5.0); SODIUM 142 MMOL/L (135-145)
[2020-12-22 04:12] LABS: CALCIUM 9.4 MG/DL (8.5-10.1)
[2020-12-22 04:13] LABS: FIBRIN DEGRADATION PRODUCTS 0.34 UG/ML (0.00-0.49); GLUCOSE 98 MG/DL (70-105); INR 0.9 (0.8-1.4); PROTHROMBIN TIME PATIENT 12.8 SEC (12.2-14.7); TOTAL PROTEIN 6.8 GM/DL (6.4-8.2)
[2020-12-22 04:14] LABS: CARBON DIOXIDE 33 MMOL/L (21-32)
[2020-12-22 04:15] LABS: BILIRUBIN,TOTAL 0.4 MG/DL (0.1-1.0)
[2020-12-22 04:16] LABS: ALKALINE PHOSPHATASE 44 U/L (40-136)
[2020-12-22 04:17] LABS: CREATININE SERUM 0.92 MG/DL (0.60-1.30); GFR ESTIMATED > 60
[2020-12-22 04:18] LABS: BUN/CREATININE RATIO 12
[2020-12-22 04:20] LABS: ALANINE AMINOTRANSFERASE 27 U/L (0-55)
[2020-12-22] MEDS ORDERED: ONDANSETRON 4 MG/2 ML (SDV) Z0FRAN ONE (04:27)
[2020-12-22] MEDS ORDERED: ONDANSETRON 4 MG/2 ML (SDV) Z0FRAN IVP ONE (04:45)
[2020-12-22] MEDS ORDERED: LORazepam INJ 2 MG/ML (ATIVAN) VIAL IVP ONE (05:15)
--- NOTE | 2020-12-22 05:23 | Diagnostic Imaging Report ---
EXAMINATION: AP upright portable chest INDICATION: Cough, congestion and shortness of breath. History of COPD. COMPARISON: Multiple priors, most recent performed on 09/10/2018. FINDINGS: The lungs are clear and the pulmonary vasculature is normal. No pneumothorax or large pleural effusion. Heart size and mediastinal contours are normal and unchanged. No acute osseous abnormality is identified. IMPRESSION: No radiographic evidence of acute chest disease. No significant change from prior. Dictated by: Dictated on workstation # [id number]
[2020-12-22] MEDS ORDERED: VASOPRESSIN INJECTION 20 UNIT in NS (IVPB) 100 ML IV SCH (09:45)
[2020-12-22] MEDS ORDERED: NOREPINEPHRINE 8 MG/250 ML 250 ML IV SCH (09:45)
[2020-12-22] MEDS ORDERED: EPINEPHrine 1 MG INJECTION 4 MG in NS (IVPB) 248 ML IV SCH (09:45)
[2020-12-22] MEDS ORDERED: ACETAMINOPHEN 325 MG TABLET PO PRN (09:45)
[2020-12-22] MEDS ORDERED: ALPRAZolam 0.5 MG (XANAX) TAB PO PRN (09:45)
[2020-12-22] MEDS ORDERED: LACTATED RINGERS 1,000 ML IV SCH ×2 (09:45→10:45)
[2020-12-22] MEDS ORDERED: IBUPROFEN 600 MG (MOTRIN) TAB PO PRN (10:00)
[2020-12-22] MEDS ORDERED: ONDANSETRON 4 MG/2 ML (SDV) Z0FRAN IVP PRN (10:00)
[2020-12-22 10:12] LABS: ABG BASE EXCESS 6.2 MMOL/L (-2.5-2.5); ABG OXYGEN SATURATION 62 % (94-100); ABG PCO2 61 MMHG (35-45); ABG TCO2 34.1 MMOL/L (21.0-31.0)
[2020-12-22 10:14] LABS: ABG PH 7.33 (7.37-7.43)
[2020-12-22 10:15] LABS: ABG PO2 38 MMHG (79-93); ALLENS TEST YES-POS
[2020-12-22 10:16] LABS: INSPIRED O2 21%; PATIENT TEMP 35.9; VENTILATOR NO
[2020-12-22 13:01] LABS: ABG BASE EXCESS 5.6 MMOL/L (-2.5-2.5); ABG OXYGEN SATURATION 77 % (94-100); ABG PCO2 53 MMHG (35-45); ABG PH 7.38 (7.37-7.43); ABG PO2 44 MMHG (79-93); ABG TCO2 32.3 MMOL/L (21.0-31.0)
[2020-12-22 13:03] LABS: ALLENS TEST YES-POS; INSPIRED O2 21%
[2020-12-22 13:04] LABS: PATIENT TEMP 36.6; VENTILATOR NO
[2020-12-22] MEDS ORDERED: CHOL20003 PO (14:00)
[2020-12-22] MEDS ORDERED: RT-ALBUINH IH (14:00)
--- NOTE | 2020-12-22 15:06 | Short Stay Summary ---
HPI History of Present Illness: 65 yo F that presented with acute shortness of breath and found to be hypoxic. Patient's passed last night and she states that she thinks that she had a panic episode and then was unable to catch her breath due to her COPD. Patient was placed on Bipap and is breathing comfortably when seen in the ICU. Patient states that she is feeling better and would like to go home if possible. She denies any fever or chills. States that her had Covid in May but she has not been around anyone. She has not missed any doses of her medication. She does not have a home oxygen requirement but states that she has been sent home on oxygen previously due to her COPD. Source: patient, RN/MD, other (Daughter) Exam Limitations: no limitations Date seen by provider: Dec 22, 2020 Time Seen by Provider: 11:00 Attending Physician Nikkie Groves MD PCP No,Local Physician Consult Date of Admission Dec 22, 2020 at 06:33 Home Medications Home Medications Reviewed patient Home Medication Reconciliation performed by pharmacy medication reconciliations csr technician and/or nursing. Patients Allergies have been reviewed. Allergies Coded Allergies: No Known Drug Allergies (Unverified , 12/22/20) NPC-Kuqamv-Oabzha Hx Patient Social History Smoking Status: Former Smoker 2nd Hand Smoke Exposure: Yes Recent Hopitalizations: No Immunizations Up To Date Date of Pneumonia Vaccine: Jul 07, 2020 Date of Influenza Vaccine: Jul 24, 2020 Past Medical History COPD HTN Anxiety Family Medical History Significant Family History: No Pertinent Family Hx Family History: Completed stroke 19 FATHER, Onset:60 years & older FH: lung cancer 19 MOTHER, Onset:60 years & older FH: rheumatoid arthritis G8 SISTER, Onset:25's - 30 Myocardial infarction G8 BROTHER, Onset:50's - 60 Sjogren's disease G8 SISTER, Onset:30's - 40 Review of Systems (CHC) Constitutional: No chills, No fever; malaise EENTM: no symptoms reported; No mouth pain, No nose congestion, No nose pain Respiratory: cough, dyspnea on exertion, short of breath Cardiovascular: no symptoms reported; No chest pain, No palpitations Gastrointestinal: no symptoms reported; No abdominal pain, No constipation, No diarrhea, No loss of appetite, No nausea, No vomiting Genitourinary: no symptoms reported; No dysuria, No frequency, No hematuria : No Musculoskeletal: no symptoms reported; No back pain, No joint pain, No muscle pain Skin: no symptoms reported; No lesions, No rash Psychiatric/Neurological: Anxiety, Weakness, Other (grief) Reviewed Test Results Reviewed Test Results Lab Laboratory Tests Test 12/22/20 03:38 12/22/20 03:40 12/22/20 04:32 12/22/20 09:45 Range/Units White Blood Count 6.2 4.3-11.0 10^3/uL Red Blood Count 5.08 3.80-5.11 10^6/uL Hemoglobin 15.3 11.5-16.0 g/dL Hematocrit 47 35-52 % Mean Corpuscular Volume 93 80-99 fL Mean Corpuscular Hemoglobin 30 25-34 pg Mean Corpuscular Hemoglobin Concent 32 32-36 g/dL Red Cell Distribution Width 12.0 10.0-14.5 % Platelet Count 109 L 130-400 10^3/uL Mean Platelet Volume 11.8 9.0-12.2 fL Immature Granulocyte % (Auto) 0 % Neutrophils (%) (Auto) 65 42-75 % Lymphocytes (%) (Auto) 23 12-44 % Monocytes (%) (Auto) 9 0-12 % Eosinophils (%) (Auto) 2 0-10 % Basophils (%) (Auto) 1 0-10 % Neutrophils # (Auto) 4.1 1.8-7.8 10^3/uL Lymphocytes # (Auto) 1.4 1.0-4.0 10^3/uL Monocytes # (Auto) 0.6 0.0-1.0 10^3/uL Eosinophils # (Auto) 0.1 0.0-0.3 10^3/uL Basophils # (Auto) 0.0 0.0-0.1 10^3/uL Immature Granulocyte # (Auto) 0.0 0.0-0.1 10^3/uL Prothrombin Time 12.8 12.2-14.7 SEC INR Comment 0.9 0.8-1.4 Activated Partial Thromboplast Time 37 H 24-35 SEC D-Dimer 0.34 0.00-0.49 UG/ML Sodium Level 142 135-145 MMOL/L Potassium Level 4.2 3.6-5.0 MMOL/L Chloride Level 100 98-107 MMOL/L Carbon Dioxide Level 33 H 21-32 MMOL/L Anion Gap 9 5-14 MMOL/L Blood Urea Nitrogen 11 7-18 MG/DL Creatinine 0.92 0.60-1.30 MG/DL Estimat Glomerular Filtration Rate > 60 BUN/Creatinine Ratio 12 Glucose Level 98 70-105 MG/DL Lactic Acid Level 0.66 2.14 *H 0.50-2.00 MMOL/L Calcium Level 9.4 8.5-10.1 MG/DL Corrected Calcium 9.5 8.5-10.1 MG/DL Total Bilirubin 0.4 0.1-1.0 MG/DL Aspartate Amino Transf (AST/SGOT) 22 5-34 U/L Alanine Aminotransferase (ALT/SGPT) 27 0-55 U/L Alkaline Phosphatase 44 40-136 U/L C-Reactive Protein High Sensitivity 0.05 0.00-0.50 MG/DL B-Type Natriuretic Peptide 26.6 <100.0 PG/ML Total Protein 6.8 6.4-8.2 GM/DL Albumin 3.9 3.2-4.5 GM/DL Procalcitonin 0.02 <0.10 NG/ML Coronavirus 2019 (JUDIE) Negative Not Detected Not Detecte Blood Gas Puncture Site RT RADIAL Blood Gas Patient Temperature 100.3 Arterial Blood pH 7.31 *L 7.37-7.43 Arterial Blood Partial Pressure CO2 68 H 35-45 MMHG Arterial Blood Partial Pressure O2 90 79-93 MMHG Arterial Blood HCO3 33 H 23-27 MMOL/L Arterial Blood Total CO2 35.0 H 21.0-31.0 MMOL/L Arterial Blood Oxygen Saturation 96 94-100 % Arterial Blood Base Excess 7.1 H -2.5-2.5 MMOL/L Zohaib Test YES-POS Blood Gas Ventilator Setting NO Blood Gas Inspired Oxygen ROOM AIR Coronavirus (COVID-19)(PCR) Test 12/22/20 10:00 12/22/20 12:00 12/22/20 12:51 Range/Units Blood Gas Puncture Site LT RAD RT BRACH Blood Gas Patient Temperature 35.9 36.6 Arterial Blood pH 7.33 *L 7.38 7.37-7.43 Arterial Blood Partial Pressure CO2 61 H 53 H 35-45 MMHG Arterial Blood Partial Pressure O2 38 *L 44 L 79-93 MMHG Arterial Blood HCO3 32 H 31 H 23-27 MMOL/L Arterial Blood Total CO2 34.1 H 32.3 H 21.0-31.0 MMOL/L Arterial Blood Oxygen Saturation 62 L 77 L 94-100 % Arterial Blood Base Excess 6.2 H 5.6 H -2.5-2.5 MMOL/L Zohaib Test YES-POS YES-POS Blood Gas Ventilator Setting NO NO Blood Gas Inspired Oxygen 21% 21% Lactic Acid Level 0.80 0.50-2.00 MMOL/L Physical Exam-(CHC) Physical Exam Vital Signs VS - Last 72 Hours, by Label 12/22/20 12/22/20 12/22/20 12/22/20 03:35 03:50 04:20 04:34 Temp 36.7 36.7 Pulse 75 69 Resp 20 23 B/P (MAP) 147/71 (96) Pulse Ox 91 100 O2 Delivery Nasal Cannula O2 Flow Rate 2.00 21.00 12/22/20 12/22/20 12/22/20 12/22/20 06:36 07:45 08:54 09:08 Pulse 64 70 78 Resp 18 18 18 B/P (MAP) 106/50 (68) 96/52 (67) 97/54 Pulse Ox 94 92 94 O2 Delivery NIV Bilevel NIV Bilevel NIV Bilevel 12/22/20 12/22/20 12/22/20 12/22/20 09:31 09:42 10:00 10:07 Temp 35.9 Pulse 70 78 85 Resp 25 22 B/P (MAP) 99/55 (70) Pulse Ox 95 97 O2 Delivery NIV Bilevel NIV Bilevel NIV Bilevel O2 Flow Rate 21.00 21.00 FiO2 21 12/22/20 12/22/20 12/22/20 12/22/20 11:00 12:00 12:36 13:00 Pulse 67 73 79 75 Resp 20 24 20 B/P (MAP) 104/46 (65) 95/64 (74) 101/53 (69) Pulse Ox 95 91 90 O2 Delivery NIV Bilevel Room Air Nasal Cannula O2 Flow Rate 21.00 2.00 12/22/20 13:25 Pulse Ox 88 O2 Delivery Room Air Capillary Refill : Less Than 3 Seconds General Appearance: no apparent distress, other (breathing comfortably on bipap) HEENT: PERRL/EOMI Neck: non-tender, full range of motion, supple Respiratory: chest non-tender, lungs clear, normal breath sounds, no respiratory distress, no accessory muscle use Cardiovascular: normal peripheral pulses, regular rate, rhythm, no edema, no murmur Gastrointestinal: normal bowel sounds, non tender, soft, no organomegaly Back: no CVA tenderness, no vertebral tenderness Extremities: normal range of motion, no pedal edema, no calf tenderness, normal capillary refill Neurologic/Psychiatric: accounts receivable supervisor II-XII nml as tested, no motor/sensory deficits, alert, normal mood/affect, oriented x 3 Skin: normal color, warm/dry Lymphatic: no adenopathy Short Stay Diagnosis Discharge Diagnosis-Short Stay Admission Diagnosis Acute on Chronic Respiratory failure with hypoxia PUI for Covid HTN Final Discharge Diagnosis See Above Conclusion Plan See problem list Copy Copies To 1: AYSE MEZA MD Assessment/Plan Assessment/Plan Admission Status: Observation (1) Acute respiratory failure with hypoxia and hypercapnia Status: Acute Assessment & Plan: - Reviewed ABG and it appears to be a venous sample, will titrate patient to NC and repeat ABG, Discussed with patient that I would prefer to watch her ON but if her ABG is improved could d/c home with oxygen, RT complete O2 study (2) COPD exacerbation Status: Acute Assessment & Plan: - Steroid (3) Person under investigation for COVID-19 Status: Acute Assessment & Plan: - Covid Neg (4) Grief reaction Status: Acute Assessment & Plan: - Patient lost last night NIKKIE GROVES MD Dec 22, 2020 15:06
[2020-12-22] MEDS ORDERED: PRD20T PO (15:11)
--- NOTE | 2020-12-22 15:18 | Discharge Summary ---
Discharge [facility] Reconcile Patient Problems Problems Reviewed?: Yes Discharge Medications New, Converted or Re-Newed RX: Transmitted to Pharmacy New Medications: Prednisone (Prednisone) 20 Mg Tab 20 MG PO DAILY for 7 Days, #7 TAB Continued Medications: Albuterol Sulfate (Proair Hfa) 1 Puff Puff 2 PUFF IH Q4H PRN for SHORTNESS OF BREATH, PUFF Alprazolam (Alprazolam) 0.5 Mg Tablet 0.5 MG PO TID PRN for ANXIETY, TAB Budesonide/Formoterol Fumarate (Symbicort 160-4.5 Mcg Inhaler) 10.2 Gm Hfa.aer.ad 2 PUFF INH BID, INHALER Cholecalciferol (Vitamin D3) (Vitamin D3) 50 Mcg Capsule 50 MCG PO DAILY, CAP Lisinopril (Lisinopril) 20 Mg Tablet 20 MG PO DAILY, TAB Oxycodone Hcl (Oxyir Tablet) 5 Mg Tablet 5 MG PO BID PRN for PAIN-SEVERE (8-10), TAB Propranolol HCl (Propranolol HCl) 40 Mg Tablet 40 MG PO BID, TAB Patient Instructions Goal/Follow Up Appt: You have a f.u appt on Friday 12/29 @ [address] Meza in [place] Activity & Diet Discharge Diet: Cardiac Diet Activity as Tolerated: Yes Copy Copies To 1: AYSE MEZA MD, HOLLY R MD Dec 22, 2020 15:17
== END 2020-12-22 18:00 | disposition home or self-care (01) | DRG 189 ==
LOC: EDUNIT# 03:35 → ER 03:36 → ICU 06:33
PROVIDERS: ADMIT Internal Medicine; ATTEND Family Medicine
PROC: 5A09357 Assistance with Respiratory Ventilation, Less than 24 Consecutive Hours, Continuous Positive Airway Pressure (ICD-10-PCS; principal; 2020-12-22)
DX: J96.01 Acute respiratory failure with hypoxia (principal); J44.1 Chronic obstructive pulmonary disease with (acute) exacerbation; E87.2 Acidosis; J96.02 Acute respiratory failure with hypercapnia; Z20.822 Contact with and (suspected) exposure to COVID-19; I10 Essential (primary) hypertension; E78.00 Pure hypercholesterolemia, unspecified; F43.20 Adjustment disorder, unspecified; F41.9 Anxiety disorder, unspecified; K76.9 Liver disease, unspecified; Z87.891 Personal history of nicotine dependence; Z85.3 Personal history of malignant neoplasm of breast; Z79.891 Long term (current) use of opiate analgesic; Z79.52 Long term (current) use of systemic steroids; Z82.5 Family history of asthma and other chronic lower respiratory diseases; Z82.49 Family history of ischemic heart disease and other diseases of the circulatory system
CPT/HCPCS: 36415; 36600; 71045; 80053; 82805; 83605; 83880; 84145; 85025; 85379; 85610; 85730; 86141; 87040; 87081; 87635; 87804; 94660

== ENCOUNTER 2021-06-27 09:33 | Emergency (ER) | payer MEDICARE ==
[~2021-06-27] VITALS: Ht 170 cm; Wt 58.9 kg
[~2021-06-27 09:33] MED LIST changes: +CHOL20003 PO; -ESTR2TAB PO; +ESTR2TAB3 PO
[2021-06-27 09:57] LABS: BASOPHILS % (AUTO) 0 % (0-10); EOSINOPHILS # (AUTO) 0.1 10^3/uL (0.0-0.3); EOSINOPHILS % (AUTO) 1 % (0-10); HEMATOCRIT 46 % (35-52); HEMOGLOBIN 15.5 g/dL (11.5-16.0); LYMPHOCYTES % (AUTO) 14 % (12-44); MEAN CORPUSCULAR HEMOGLOBIN 30 pg (25-34); MEAN CORPUSCULAR HGB CONC 34 g/dL (32-36); MEAN CORPUSCULAR VOLUME 90 fL (80-99); MEAN PLATELET VOLUME 11.4 fL (9.0-12.2); MONOCYTES # (AUTO) 0.6 10^3/uL (0.0-1.0); MONOCYTES % (AUTO) 8 % (0-12); NEUTROPHILS # (AUTO) 5.6 10^3/uL (1.8-7.8); NEUTROPHILS % (AUTO) 77 % (42-75); PLATELET COUNT 163 10^3/uL (130-400); WHITE BLOOD COUNT 7.3 10^3/uL (4.3-11.0)
[2021-06-27 10:14] LABS: POTASSIUM 4.6 MMOL/L (3.6-5.0)
[2021-06-27 10:15] LABS: BILIRUBIN,URINE NEGATIVE (NEGATIVE); CLARITY,URINE SL CLOUDY; COLOR,URINE YELLOW; GLUCOSE, URINE (UA) NEGATIVE (NEGATIVE); KETONES,URINE NEGATIVE (NEGATIVE); LEUKOCYTE ESTERASE ,URINE NEGATIVE (NEGATIVE); NITRITE,URINE NEGATIVE (NEGATIVE); PROTEIN,URINE NEGATIVE (NEGATIVE)
[2021-06-27 10:15] LABS: CALCIUM 9.6 MG/DL (8.5-10.1)
[2021-06-27 10:18] LABS: BILIRUBIN,TOTAL 0.8 MG/DL (0.1-1.0)
[2021-06-27 10:20] LABS: BACTERIA,URINE NEGATIVE /HPF
[2021-06-27 10:20] LABS: CREATININE SERUM 0.74 MG/DL (0.60-1.30)
[2021-06-27] MEDS ORDERED: LACTATED RINGERS 1,000 ML IV ONE (10:30)
[2021-06-27] MEDS ORDERED: ONDANSETRON 4 MG/2 ML (SDV) Z0FRAN IVP ONE (10:30)
[2021-06-27] MEDS ORDERED: fentaNYL INJ 100 MCG/2 ML AMP IVP ONE ×2 (10:30→13:15)
[2021-06-27 10:47] LABS: FIBRIN DEGRADATION PRODUCTS 0.34 UG/ML (0.00-0.49); PROTHROMBIN TIME PATIENT 13.4 SEC (12.2-14.7)
[2021-06-27 10:49] LABS: MAGNESIUM 2.1 MG/DL (1.6-2.4)
--- NOTE | 2021-06-27 11:27 | Diagnostic Imaging Report ---
INDICATION: Chest pain EXAMINATION: Chest 06/27/2021 COMPARISON: 12/22/2020 FINDINGS: The cardiomediastinal silhouette is unremarkable. The pulmonary vasculature is within normal limits. The lungs and pleural spaces are clear. IMPRESSION: No evidence of an acute cardiopulmonary process. Dictated by: Dictated on workstation # [id number]
[2021-06-27] MEDS ORDERED: KETOROLAC 30 MG/ML VIAL IVP ONE (12:45)
[2021-06-27] MEDS ORDERED: fentaNYL INJ 100 MCG/2 ML AMP ONE (13:01)
[2021-06-27] MEDS ORDERED: HOLD METFORMIN - RECEIVED CONTRAST 20 ML VIAL IV SCH (13:45)
[2021-06-27] MEDS ORDERED: IOHEXOL 350 MG/ML 100 ML (OMNIPAQUE 350) VIAL IV ONE (13:45)
[2021-06-27] MEDS ORDERED: NS 100 ML (IVPB) BAG IV ONE (13:45)
--- NOTE | 2021-06-27 13:49 | ED General ---
General Chief Complaint: General Problems/Pain Stated Complaint: GENERALIZED ILLNESS Nursing Triage Note: PT PRESENTS TO ED VIA EMS FROM HOME WITH COMPLAINTS OF SINCE TUESDAY BACK PAIN, NECK PAIN AND ZENG AFTER LIFTING UP/MOVING HER COUCH. PT ALSO REPORTS GENERALIZED MALAISE, N/V/D. Source of Information: Patient Exam Limitations: No Limitations History of Present Illness Date Seen by Provider: Jun 27, 2021 Time Seen by Provider: 09:43 Initial Comments This 65-year-old woman presents to the emergency room after feeling ill since June 23. She notes on that day she moved a couch and a rug and developed neck, back and head aching. Since then she has had persistent headache. She has additionally developed some chest discomfort, shortness of breath, vomiting, and diarrhea. She reports having a COVID-19 test about 3 weeks ago in the clinic because her oxygen saturation was 90% and not improving with nebulizer treatments. She was prescribed azithromycin and prednisone at that time. She believes she may have had COVID-19 with a false negative test. She has been f ully vaccinated. Patient reports some depression with the loss of her in December. He from "long hauler COVID-19" complications. She has been depressed since that time and has lost a significant amount of weight. Patient has nontender pain in her upper back radiating through her neck and into the superior aspect of her head and scalp. 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 She has been treated for hepatitis C and states she is now clear of a viral load. Dr. Ayse Meza is her primary care provider. Allergies and Home Medications Allergies Coded Allergies: No Known Drug Allergies (Unverified , 12/22/20) Patient Home Medication List Home Medication List Reviewed: Yes Albuterol Sulfate (Proair Hfa) 1 Puff Puff, 2 PUFF IH Q4H PRN for SHORTNESS OF BREATH, (Reported) Entered as Reported by: OSMAN CUMMINS on 12/22/20 1400 Alprazolam (Alprazolam) 0.5 Mg Tablet, 0.5 MG PO TID PRN for ANXIETY, (Reported) Entered as Reported by: JAMARI VELEZ on 09/06/18 0925 Budesonide/Formoterol Fumarate (Symbicort 160-4.5 Mcg Inhaler) 10.2 Gm Hfa.aer.ad, 2 PUFF INH BID, (Reported) Entered as Reported by: JAMARI VELEZ on 09/06/18924 Cholecalciferol (Vitamin D3) (Vitamin D3) 50 Mcg Capsule, 50 MCG PO DAILY, (Reported) Entered as Reported by: OSMAN CUMMINS on 12/22/20 1400 Cyclobenzaprine HCl (Cyclobenzaprine HCl) 10 Mg Tablet, 10 MG PO HS PRN for SPASMS Prescribed by: LINO DUMONT on 06/27/211510 Lisinopril (Lisinopril) 20 Mg Tablet, 20 MG PO DAILY, (Reported) Entered as Reported by: JAMARI VELEZ on 09/06/18924 Ondansetron (Ondansetron Odt) 4 Mg Tab.rapdis, 4 MG SL Q4H PRN for NAUS EA/VOMITING Prescribed by: LINO DUMONT on 06/27/211510 Oxycodone Hcl (Oxyir Tablet) 5 Mg Tablet, 5 MG PO BID PRN for PAIN-SEVERE (8- 10), (Reported) Entered as Reported by: JAMARI VELEZ on 09/06/18924 Prednisone (Prednisone) 20 Mg Tab, 20 MG PO DAILY Prescribed by: NIKKIE BERMEO on 12/22/201510 Propranolol HCl (Propranolol HCl) 40 Mg Tablet, 40 MG PO BID, (Reported) Entered as Reported by: JAMARI VELEZ on 09/06/18924 Review of Systems Review of Systems Constitutional: No fever; weakness EENTM: see HPI Respiratory: see HPI Cardiovascular: see HPI Gastrointestinal: see HPI Genitourinary: no symptoms reported : No Musculoskeletal: see HPI Skin: no symptoms reported Psychiatric/Neurological: See HPI, Headache, Other (No focal deficits) Past Tcpyjts-Yaghlm-Iwhoxj Hx Patient Social History Tobacco Use?: Yes Tobacco type used: Cigarettes Smoking Status: Former Smoker Substance use?: No Alcohol Use?: No Pt feels they are or have been: No Immunizations Up To Date First/Initial COVID19 Vaccinat: JANUARY 2021 Second COVID19 Vaccination Paulie: FEBRUARY 2021 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 Seasonal Allergies Seasonal Allergies: No Past Medical History Surgery/Hospitalization HX: PMH: LIVER FAILURE, HTN, ANXIETY, COPD Surgeries: Yes Appendectomy, Breast (breast tumor resection), Gallbladder, Hysterectomy, Lumpectomy, Orthopedic (Ankle), Tonsillectomy, Tubal Ligation Respiratory: Yes Chronic Bronchitis, COPD Currently Using CPAP: No Currently Using BIPAP: No Cardiac: Yes High Cholesterol, Hypertension Neurological: No Reproductive Disorders: No 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 Genitourinary: No Gastrointestinal: Yes Liver Disease/Jaundice, Hepatitis (Hepatitis C status post treatment with no viral load) Musculoskeletal: Yes Arthritis Endocrine: No HEENT: No Cancer: Yes Breast Did You Recieve Any Treatments: Yes What Type of Treatment Did You: Surgical Intervention Psychosocial: Yes Anxiety, Depression Integumentary: No Blood Disorders: No Adverse Reaction/Blood Tranf: No Family Medical History Completed stroke 19 FATHER, Onset:60 years & older FH: lung cancer 19 MOTHER, Onset:60 years & older FH: rheumatoid arthritis G8 SISTER, Onset:25's - 30 Myocardial infarction G8 BROTHER, Onset:50's - 60 Sjogren's disease G8 SISTER, Onset:30's - 40 No Pertinent Family Hx Physical Exam Vital Signs Vital Signs - First Documented 06/27/21 09:45 Pulse 69 Resp 18 B/P (MAP) 117/71 (86) Pulse Ox 96 Capillary Refill : Less Than 3 Seconds Height, Weight, BMI Height: 5'8.00" Weight: 162lbs. 5.0oz. 73.259741om; 20.00 BMI Method:Stated General Appearance: No Apparent Distress, WD/WN HEENT: PERRL/EOMI, Normal ENT Inspection, Other (Mucous membranes somewhat dry. No scalp or neck lesions to suggest shingles) Neck: Normal Inspection; No JVD Respiratory: Chest Non Tender, Lungs Clear, Normal Breath Sounds, No Accessory Muscle Use, No Respiratory Distress Cardiovascular: Regular Rate, Rhythm, No Edema, No Murmur Gastrointestinal: Normal Bowel Sounds, Non Tender, Soft; No Distended Back: Normal Inspection; No Vertebral Tenderness Extremity: Normal Inspection, No Pedal Edema Neurologic/Psychiatric: Alert, Oriented x3, No Motor/Sensory Deficits, Normal Mood/Affect, tobacco hanger II-XII Norm as Tested Skin: Normal Color, Warm/Dry Progress/Results/Core Measures Suspected Sepsis SIRS Temperature: Pulse: 69 Respiratory Rate: 18 Laboratory Tests 06/27/21 09:50: White Blood Count 7.3 Blood Pressure 117 /71 Mean: 86 Laboratory Tests 06/27/21 09:50: Creatinine 0.74, INR Comment 1.0, Platelet Count 163, Total Bilirubin 0.8 Results/Orders Lab Results Laboratory Tests Test 06/27/21 09:42 06/27/21 09:50 06/27/21 10:09 Range/Units Influenza Type A (RT-PCR) Not Detected Not Detecte Influenza Type B (RT-PCR) Not Detected Not Detecte SARS-CoV-2 RNA (RT-PCR) Not Detected Not Detecte White Blood Count 7.3 4.3-11.0 10^3/uL Red Blood Count 5.15 H 3.80-5.11 10^6/uL Hemoglobin 15.5 11.5-16.0 g/dL Hematocrit 46 35-52 % Mean Corpuscular Volume 90 80-99 fL Mean Corpuscular Hemoglobin 30 25-34 pg Mean Corpuscular Hemoglobin Concent 34 32-36 g/dL Red Cell Distribution Width 11.8 10.0-14.5 % Platelet Count 163 130-400 10^3/uL Mean Platelet Volume 11.4 9.0-12.2 fL Immature Granulocyte % (Auto) 0 % Neutrophils (%) (Auto) 77 H 42-75 % Lymphocytes (%) (Auto) 14 12-44 % Monocytes (%) (Auto) 8 0-12 % Eosinophils (%) (Auto) 1 0-10 % Basophils (%) (Auto) 0 0-10 % Neutrophils # (Auto) 5.6 1.8-7.8 10^3/uL Lymphocytes # (Auto) 1.0 1.0-4.0 10^3/uL Monocytes # (Auto) 0.6 0.0-1.0 10^3/uL Eosinophils # (Auto) 0.1 0.0-0.3 10^3/uL Basophils # (Auto) 0.0 0.0-0.1 10^3/uL Immature Granulocyte # (Auto) 0.0 0.0-0.1 10^3/uL Prothrombin Time 13.4 12.2-14.7 SEC INR Comment 1.0 0.8-1.4 Activated Partial Thromboplast Time 37 H 24-35 SEC D-Dimer 0.34 0.00-0.49 UG/ML Sodium Level 130 L 135-145 MMOL/L Potassium Level 4.6 3.6-5.0 MMOL/L Chloride Level 97 L 98-107 MMOL/L Carbon Dioxide Level 25 21-32 MMOL/L Anion Gap 8 5-14 MMOL/L Blood Urea Nitrogen 11 7-18 MG/DL Creatinine 0.74 0.60-1.30 MG/DL Estimat Glomerular Filtration Rate 79 BUN/Creatinine Ratio 15 Glucose Level 108 H 70-105 MG/DL Calcium Level 9.6 8.5-10.1 MG/DL Corrected Calcium 9.6 8.5-10.1 MG/DL Magnesium Level 2.1 1.6-2.4 MG/DL Total Bilirubin 0.8 0.1-1.0 MG/DL Aspartate Amino Transf (AST/SGOT) 18 5-34 U/L Alanine Aminotransferase (ALT/SGPT) 22 0-55 U/L Alkaline Phosphatase 45 40-136 U/L Myoglobin 34.2 10.0-92.0 NG/ML Troponin I < 0.028 <0.028 NG/ML C-Reactive Protein High Sensitivity 0.02 0.00-0.50 MG/DL Total Protein 7.0 6.4-8.2 GM/DL Albumin 4.0 3.2-4.5 GM/DL Urine Color YELLOW Urine Clarity SL CLOUDY Urine pH 6.0 5-9 Urine Specific [place] 1.020 1.016-1.022 Urine Protein NEGATIVE NEGATIVE Urine Glucose (UA) NEGATIVE NEGATIVE Urine Ketones NEGATIVE NEGATIVE Urine Nitrite NEGATIVE NEGATIVE Urine Bilirubin NEGATIVE NEGATIVE Urine Urobilinogen 0.2 < = 1.0 MG/DL Urine Leukocyte Esterase NEGATIVE NEGATIVE Urine RBC (Auto) NEGATIVE NEGATIVE Urine RBC NONE /HPF Urine WBC NONE /HPF Urine Squamous Epithelial Cells 2-5 /HPF Urine Crystals NONE /LPF Urine Bacteria NEGATIVE /HPF Urine Casts NONE /LPF Urine Mucus NEGATIVE /LPF Urine Culture Indicated NO My Orders Orders - LINO MOORE MD Cbc With Automated Diff (06/27/21 09:43) Comprehensive Metabolic Panel (06/27/21 09:43) Hs C Reactive Protein (06/27/21 09:43) Ua Culture If Indicated (06/27/21 09:43) Ed Iv/Invasive Line Start (06/27/21 09:43) Magnesium (06/27/21 10:28) Chest 1 View, Ap/Pa Only (06/27/21 10:28) Ekg Tracing (06/27/21 10:28) Myoglobin Serum (06/27/21 10:28) Protime With Inr (06/27/21 10:28) Partial Thromboplastin Time (06/27/21 10:28) O2 (06/27/21 10:28) Monitor-Rhythm Ecg Trace Only (06/27/21 10:28) Ondansetron Injection (Zofran Injectio (06/27/21 10:30) Fentanyl Inj (Sublimaze Injection) (06/27/21 10:30) Lactated Ringers (Lr 1000 Ml Iv Solution (06/27/21 10:30) Influenza A And B By Pcr (06/27/21 10:30) Covid 19 Inhouse Test (06/27/21 10:30) Fibrin Degradation Products (06/27/21 09:50) Troponin I (06/27/21 09:50) Ketorolac Injection (Toradol Injection) (06/27/21 12:45) Ct Angio Head/Neck (06/27/21 13:03) Fentanyl Inj (Sublimaze Injection) (06/27/21 13:01) Fentanyl Inj (Sublimaze Injection) (06/27/21 13:15) Iohexol Injection (Omnipaque 350 Mg/Ml 1 (06/27/21 13:45) Received Contrast (Hold Metformin- Contr (06/27/21 13:45) Ns (Ivpb) (Sodium Chloride 0.9% Ivpb Bag (06/27/21 13:45) Medications Given in ED Current Medications Medications Dose Ordered Sig/Jean Route Start Time Stop Time Status Last Admin Dose Admin Fentanyl Citrate 50 mcg ONCE ONCE IVP 06/27/21 10:30 06/27/21 10:31 DC 06/27/21 10:42 50 MCG Fentanyl Citrate 50 mcg ONCE ONCE IVP 06/27/21 13:15 06/27/21 13:16 DC 06/27/21 13:33 50 MCG Iohexol 75 ml ONCE ONCE IV 06/27/21 13:45 06/27/21 13:46 DC 06/27/21 13:58 75 ML Ketorolac Tromethamine 15 mg ONCE ONCE IVP 06/27/21 12:45 06/27/21 12:46 DC 06/27/21 14:32 15 MG Lactated Ringer's 1,000 ml @ 0 mls/hr Q0M ONCE IV 06/27/21 10:30 06/27/21 10:31 DC 06/27/21 10:42 0 MLS/HR Ondansetron HCl 8 mg ONCE ONCE IVP 06/27/21 10:30 06/27/21 10:31 DC 06/27/21 10:42 8 MG Sodium Chloride 100 ml ONCE ONCE IV 06/27/21 13:45 06/27/21 13:46 DC 06/27/21 13:58 80 ML Vital Signs/I&O 06/27/21 06/27/21 09:45 15:26 Pulse 69 71 Resp 18 16 B/P (MAP) 117/71 (86) 122/74 Pulse Ox 96 98 Capillary Refill : Less Than 3 Seconds Blood Pressure Mean: 86 Progress Note : Progress Note Patient's most troublesome complaint is headache. She was treated with fentanyl. Thorough work-up was performed and was unremarkable. She reiterates that she has never had a headache like this before and is quite concerned about it. We discussed options for further evaluating her pain. We settled on perfor jacob CT angiogram of the head and neck to evaluate for organic causes and to evaluate vasculature as well. This was unremarkable in regard to discovering causes for her pain. She ultimately received Toradol which helped her headache significantly. Nausea was treated with Zofran. She was hydrated with a liter of IV fluid. See discharge instructions for further discussion. We did discuss use of ibuprofen. She does not appear to have any notable contraindications for ibuprofen use in moderation. Dosing instructions were discussed in the discharge instructions. ECG Initial ECG Impression Date: Jun 27, 2021 Initial ECG Impression Time: 10:43 Initial ECG Rate: 63 Initial ECG Rhythm: Normal Sinus Initial ECG Impression: Normal Comment Normal sinus rhythm with no ST elevation or depression. No abnormal intervals or axis deviation. Diagnostic Imaging Diagonstic Imaging: Xray Plain Films/CT/US/NM/MRI: chest Comments NAME: KACIE BUENO [facility] REC#: [id number] PT STATUS: REG ER : 1955 PHYSICIAN: LINO MOORE MD ADMIT DATE: 06/27/21/ER Signed Date of Exam:06/27/21 CHEST 1 VIEW, AP/PA ONLY INDICATION: Chest pain EXAMINATION: Chest 06/27/2021 COMPARISON: 12/22/2020 FINDINGS: The cardiomediastinal silhouette is unremarkable. The pulmonary vasculature is within normal limits. The lungs and pleural spaces are clear. IMPRESSION: No evidence of an acute cardiopulmonary process. Dictated by: Dictated on workstation # [id number] Dict: 06/27/21 1126 Trans: 06/27/21 1149 [facility] [id number] Interpreted by: SHAGGY DANIEL MD Electronically signed by: SHAGGY DANIEL MD 06/27/21 1149 Diagonstic Imaging: CT Plain Films/CT/US/NM/MRI: other (Angiogram head and neck) Comments CT angiogram head and neck viewed by me and report reviewed. See report below: NAME: KACIE BUENO [facility] REC#: [id number] PT STATUS: REG ER : 1955 PHYSICIAN: LINO MOORE MD ADMIT DATE: 06/27/21/ER Draft Date of Exam:06/27/21 CT ANGIO HEAD/NECK EXAMINATION: CT angiography head and neck with and without contrast. TECHNIQUE: After intravenous administration of contrast, thin section axial CT angiography of the head and neck was performed. Source data was reformatted into 3D MIP projections. All CT scans use one or more of the following dose optimizing techniques: automated exposure control, MA and/or KvP adjustment based on a patient size and exam type, or iterative reconstruction. HISTORY: Worst headache of life. Nausea and neck pain. Back pain COMPARISON: None available. FINDINGS: The middle cerebral arteries are normal. The posterior cerebral arteries are normal. The anterior cerebral arteries are normal. There is no large vessel occlusion. No aneurysm or vascular malformation seen. The origins of the carotid arteries are normal. There are normal carotid bifurcations bilaterally. There is scattered atherosclerotic disease along the course of the common carotid arteries bilaterally especially at the bulbs with no significant stenosis appreciated. The internal carotid arteries appear normal without stenosis aneurysmal dilatation or dissection. Vertebral artery origins are normal. There is no significant stenosis or evidence for occlusion. No vertebral artery dissections. Chavez-white matter differentiation is normal. There is no mass mass effect or midline shift. There is no hydrocephalus. A small hypodensity along midline likely from a previously ruptured dermoid. Postcontrast imaging on delayed images unremarkable for abnormal enhancement of any lesions. No soft tissue abnormality is seen. No osseus lesions or fractures are seen. Limited imaging through the lung apices demonstrates chronic findings.. IMPRESSION: 1. No acute intracranial process. 2. Atherosclerotic disease within the carotid arteries with no significant stenosis, aneurysmal dilatation or occlusion. Dictated on workstation # [id number] Dict: 06/27/21 1358 Trans: 06/27/21 1417 [facility] [id number] Interpreted by: SHAGGY DANIEL MD Departure Impression Primary Impression: Flu-like symptoms Additional Impressions: Nausea vomiting and diarrhea Severe headache Neck ache Disposition: HOME, SELF-CARE Condition: Improved Departure-Patient Inst. Decision time for Depature: 15:08 Referrals: NO,LOCAL PHYSICIAN (PCP/Family) Primary Care Physician Patient Instructions: Headache, Adult Add. Discharge Instructions: Drink plenty of clear liquids to stay well-hydrated. You may continue using your usual medications as previously prescribed. You may add ibuprofen up to 400 mg 3 times a day as needed for additional pain management. Take with food or milk to avoid stomach upset. You may use your muscle relaxer at night to help you rest when you sleep. Keep your appointment with your primary care provider as previously scheduled. Discuss further treatment and evaluation of headache if headaches are still occurring at that time. Call with questions or concerns. Return to the ER if you have worsening symptoms. All discharge instructions reviewed with patient and/or family. Voiced understanding. Scripts Cyclobenzaprine HCl (Cyclobenzaprine HCl) 10 Mg Tablet 10 MG PO HS PRN for SPASMS, #10 TAB 0 Refills Prov: LINO MOORE MD 06/27/21 Ondansetron (Ondansetron Odt) 4 Mg Tab.rapdis 4 MG SL Q4H PRN for NAUSEA/VOMITING, #10 TAB Prov: LINO MOORE MD 06/27/21 Copy Copies To 1: AYSE MEZA MD, JOSHUA T MD Jun 27, 2021 13:49
--- NOTE | 2021-06-27 14:17 | Diagnostic Imaging Report ---
EXAMINATION: CT angiography head and neck with and without contrast. TECHNIQUE: After intravenous administration of contrast, thin section axial CT angiography of the head and neck was performed. Source data was reformatted into 3D MIP projections. All CT scans use one or more of the following dose optimizing techniques: automated exposure control, MA and/or KvP adjustment based on a patient size and exam type, or iterative reconstruction. HISTORY: Worst headache of life. Nausea and neck pain. Back pain COMPARISON: None available. FINDINGS: The middle cerebral arteries are normal. The posterior cerebral arteries are normal. The anterior cerebral arteries are normal. There is no large vessel occlusion. No aneurysm or vascular malformation seen. The origins of the carotid arteries are normal. There are normal carotid bifurcations bilaterally. There is scattered atherosclerotic disease along the course of the common carotid arteries bilaterally especially at the bulbs with no significant stenosis appreciated. The internal carotid arteries appear normal without stenosis aneurysmal dilatation or dissection. Vertebral artery origins are normal. There is no significant stenosis or evidence for occlusion. No vertebral artery dissections. Chavez-white matter differentiation is normal. There is no mass mass effect or midline shift. There is no hydrocephalus. A small hypodensity along midline likely from a previously ruptured dermoid. Postcontrast imaging on delayed images unremarkable for abnormal enhancement of any lesions. No soft tissue abnormality is seen. No osseus lesions or fractures are seen. Limited imaging through the lung apices demonstrates chronic findings.. IMPRESSION: 1. No acute intracranial process. 2. Atherosclerotic disease within the carotid arteries with no significant stenosis, aneurysmal dilatation or occlusion. Dictated by: Dictated on workstation # [id number]
[2021-06-27] MEDS ORDERED: CYCL10TA25 PO (15:11)
[2021-06-27] MEDS ORDERED: ONDA4TAB11 SL (15:11)
[2021-06-27 15:26] VITALS: BP 122/74
== END 2021-06-27 15:26 | disposition home or self-care (01) ==
LOC: EDUNIT# 09:33 → ER 09:35
DX: J11.1 Influenza due to unidentified influenza virus with other respiratory manifestations (principal); R11.2 Nausea with vomiting, unspecified; R19.7 Diarrhea, unspecified; R51.9 Headache, unspecified; M54.2 Cervicalgia; J44.9 Chronic obstructive pulmonary disease, unspecified; I10 Essential (primary) hypertension; F41.9 Anxiety disorder, unspecified; Z87.891 Personal history of nicotine dependence; Z20.822 Contact with and (suspected) exposure to COVID-19; Z79.899 Other long term (current) drug therapy; Z79.52 Long term (current) use of systemic steroids
CPT/HCPCS: 36415; 70496; 70498; 71045; 80053; 81000; 83735; 83874; 84484; 85025; 85379; 85610; 85730; 86141; 87636; 93005; 93041; 96361; 96374; 96375; 96376

== ENCOUNTER → 2021-08-19 | Outpatient (CLI) | payer MEDICARE ==
[~2021-08-19] MED LIST changes: +CATHETER FLUSH 10 ML SYR IV PRN; +CYCL10TA25 PO; +HOLD METFORMIN - RECEIVED CONTRAST 20 ML VIAL IV SCH; +IOHEXOL 350 MG/ML 100 ML (OMNIPAQUE 350) VIAL IV ONE; +NS 100 ML (IVPB) BAG IV ONE; +ONDA4TAB11 SL
--- NOTE | 2021-08-19 13:44 | Diagnostic Imaging Report ---
PROCEDURE: CT abdomen and pelvis with and without contrast. TECHNIQUE: Precontrast acquisitions were acquired through the abdomen and pelvis. Multiple contiguous axial images were obtained through the abdomen and pelvis after the administration of intravenous contrast. Auto Exposure Controls were utilized during the CT exam to meet ALARA standards for radiation dose reduction. INDICATION: Cirrhosis, follow-up. COMPARISON: Correlation is made with prior CT 04/05/2014. FINDINGS: The lung bases are clear. The dominant lesion in the right lobe of the liver appears to be stable measuring 4.5 x 3.5 cm compared with 5.2 x 4.4 cm on prior exam. Two additional smaller lesions described are also stable in size. These again may represent cavernous hemangiomas. No new liver mass is identified. The gallbladder is surgically absent. There is no biliary ductal dilatation. The pancreas and spleen are unremarkable. No adrenal mass is detected. Kidneys contain cortical low-attenuation lesions suggestive of cysts. Aorta is heavily calcified but nonaneurysmal. The small and large bowel loops are normal in caliber. There is no ascites. There is some diverticulosis of the sigmoid but no evidence of acute diverticulitis. IMPRESSION: Stable liver lesions when compared with study dating back to 2013. No new abnormality is identified. Dictated by: Dictated on workstation # [id number]
== END ==
LOC: RAD 11:45
PROVIDERS: ATTEND Pediatrics
DX: K74.60 Unspecified cirrhosis of liver (principal); K76.9 Liver disease, unspecified
CPT/HCPCS: 74178

== ENCOUNTER → 2023-07-28 | Outpatient (CLI) | payer MEDICARE ==
[~2023-07-28] VITALS: Ht 170.2 cm; Wt 66.4 kg
[~2023-07-28] MED LIST changes: +ALBU8.5H6 IH; -CATHETER FLUSH 10 ML SYR IV PRN; -HOLD METFORMIN - RECEIVED CONTRAST 20 ML VIAL IV SCH; -IOHEXOL 350 MG/ML 100 ML (OMNIPAQUE 350) VIAL IV ONE; +LIDOCAINE 1% INJ 10 ML VIAL INJ ONE; -NS 100 ML (IVPB) BAG IV ONE; -RT-ALBUINH IH
--- NOTE | 2023-07-28 16:13 | Diagnostic Imaging Report ---
INDICATION: Right breast density. Patient presents for biopsy. PROCEDURE: Patient was originally brought to the department for ultrasound-guided right breast biopsy. However, sonographic interrogation of the right breast was performed and the ill-defined area of hypoechogenicity noted on the outside ultrasound was not well-visualized today. Therefore, a repeat CC and ML mammogram was performed on dedicated mammographic equipment again showing an area of increased density in the lower outer right breast at mid depth. Therefore, at this time it was decided to attempt to undergo stereotactic biopsy. Patient was positioned in a chair in a sitting upright position. The right breast was positioned lateral medial. Stereotactic and tomographic imaging was then performed. The density was then targeted. All images were viewed on a dedicated workstation. The lateral right breast was prepped and draped in the usual sterile fashion. A small amount of 1% lidocaine was utilized for local anesthesia. An 8-gauge vacuum-assisted needle was advanced into the right breast from a lateral approach and placed per stereotactic coordinates. Four core biopsies were then obtained with a vacuum-assisted device. A marker clip was deployed. Needle was removed and hemostasis was obtained. Postprocedure 2D CC and lateral medial mammography was performed on dedicated mammographic equipment. Marker clip was noted in the outer right breast mid depth. Patient tolerated the procedure well and left the Department in stable condition. IMPRESSION: Successful stereotactic biopsy of the right breast utilizing vacuum-assisted device. Pathology results are currently pending. Dictated by: Dictated on workstation # [id number]
== END ==
LOC: RAD 10:19
PROVIDERS: ATTEND Pediatrics
DX: N63.10 Unspecified lump in the right breast, unspecified quadrant (principal)
CPT/HCPCS: 19081; A4648